=== PATIENT | female | born 1955 | race Caucasian/White ===

== ENCOUNTER → 2017-07-06 | Outpatient (CLI) | payer OTHER ==
[2017-07-06 15:25] LABS: ALT 59 U/L (9-52); AST 70 U/L (14-36); Alkaline Phosphatase 62 U/L (38-126); Anion Gap 13 mmol/L; Blood Urea Nitrogen 19 mg/dL (7-17); Calcium 10.2 mg/dL (8.4-10.2); Carbon Dioxide 26 mmol/L (22-30); Chloride 100 mmol/L (98-107); Glucose 184 mg/dL (74-99); Non-African American GFR(MDRD) >60 (>60 ml/min/1.73 sqM); Potassium 4.9 mmol/L (3.5-5.1); Sodium 139 mmol/L (137-145); Total Bilirubin 0.4 mg/dL (0.2-1.3); Total Protein 7.4 g/dL (6.3-8.2)
== END | disposition home or self-care (01) ==
LOC: LABWHC1 14:31
PROVIDERS: ATTEND Internal Medicine Gastroenterology
DX: K76.0 Fatty (change of) liver, not elsewhere classified (principal)
CPT/HCPCS: 36415; 80053

== ENCOUNTER 2022-02-09 08:00 | Inpatient (IN) | payer MEDICARE, OTHER ==
[2022-02-09] MEDS: fentaNYL (PF) 50 MCG/ML 2 ML AMP IV ONE ×2 (11:56→12:23)
[2022-02-09] MEDS ORDERED: LIDOCAINE 1% INJ 10MG/ML (30 ML VIAL-PF) SQ ONE (11:57)
[2022-02-09] MEDS: HEPARIN SODIUM 1,000 UN/ML (10ML VL) IV ONE ×2 (12:06→13:08)
[2022-02-09] MEDS ORDERED: PRASUGREL 10 MG TAB PO ONE (12:08)
[2022-02-09] MEDS ORDERED: IV FLUID CONTINUATION 300 ML IV ONE (12:14)
[2022-02-09] MEDS ORDERED: IOPAMIDOL-370 125ML BTL INJ ONE (12:23)
[2022-02-09] MEDS ORDERED: NITROGLYCERIN 1000MCG/10ML SYRINGE INTRACORON ONE (12:38)
[2022-02-09] MEDS ORDERED: IOPAMIDOL-370 100ML BTL INJ ONE ×2 (12:50→13:04)
[2022-02-09] MEDS ORDERED: FUROSEMIDE 10 MG/ML 4 ML VIAL IV ONE (12:59)
[2022-02-09] MEDS ORDERED: ATROPINE SULFATE 0.1 MG/ML 10ML SYRINGE IV PRN (13:21)
[2022-02-09] MEDS ORDERED: RX INFO: IV CONTRAST WAS GIVEN 1 EACH MISC MISCELLANE PRN (13:21)
[2022-02-09] MEDS ORDERED: ZOLPIDEM 5 MG TAB PO PRN (13:21)
[2022-02-09] MEDS ORDERED: MAG HYDROX/AL HYDROX/SIMETH 30 ML CUP PO PRN (13:21)
--- NOTE | 2022-02-09 13:29 | P.CRDCN ---
History of Present Illness Consult date: 02/09/22 History of present illness: History of Present Illness: The patient is a 66-year-old female with a known history of chronic tobacco use, hypertension, diabetes and hyperlipidemia who has been complaining of chest discomfort for the last month presented to the emergency room at [facility] with chest discomfort, her EKG showed an IVCD with ST elevation in the anterior leads, recommendations were made regarding transfer for emergent cardiac catheterization. The patient denies any history of obstructive coronary disease but she's been having progressive chest discomfort she had nausea and vomiting and dyspnea. She denies any peripheral edema no dizziness palpitation or syncope. She has not been followed by cardiology in the recent past. She smokes on a regular basis and is very limited in her physical activity. She has no documented PND orthopnea or peripheral edema. Her medication at home include aspirin, Lipitor, Lexapro, Tri-Chlor, Synthroid, lisinopril, metformin Review of Systems: Respiratory: Chronic dyspnea on exertion was cough GI: She had nausea and vomiting today. No history of peptic ulcer disease. No recent GI bleed. : No hematuria or dysuria. Nervous System: No stroke or seizure. Physical Examination: 66-year-old female evaluated in the cardiac catholic priest, short of breath and having severe chest discomfort. Heart rate in the 90s to 100 with a blood pressure of 110/70 Head: Normocephalic. Eyes: Sclerae nonicteric. Neck: Good carotid upstroke, no bruit, no jugular venous distention. Lungs: Decreased breath sounds bilaterally Heart: Regular rate and rhythm, S1-S2, no S3, no rub. Systolic ejection murmur. Abdomen: Soft nontender, positive bowel sounds no organomegaly. Extremities: No edema, intact distal pulses. Labs: EKG shows sinus mechanism with frequent PVCs, IVCD with ST elevation anteriorly Impression: 1. Acute anterior wall myocardial infarction 2. Chronic tobacco use 3. Diabetes 4. History of hypertension 5. Hyperlipidemia Plan: 1. I have recommended to proceed with emergent cardiac catheterization, the procedure as well as the risks and the complication were discussed with her 2. Obtain an echocardiogram with Doppler 3. Smoking cessation 4. Depending on her progress further recommendations will be made 5. Prognosis is guarded, thank you for this consult we will follow with you. Medications and Allergies Allergies Allergy/AdvReac Type Severity Reaction Status Date / Time Penicillins Allergy Rash/Hives Verified 02/09/22 12:13 Physical Exam Vitals: Intake and Output 02/08/22 02/09/22 02/09/22 22:59 06:59 14:59 Intake Total 250 Balance 250 Intake: IV 250 Other: Weight 100 kg Results Intake and Output 02/08/22 02/09/22 02/09/22 22:59 06:59 14:59 Intake Total 250 Balance 250 Intake: IV 250 Other: Weight 100 kg Patient Weight 02/10/22 06:59 Weight 100 kg
[2022-02-09] MEDS ORDERED: SODIUM CHLORIDE 0.9% 1,000 ML in EMPTY BAG 1 BAG IV SCH (13:30)
[2022-02-09 13:38] LABS: Glucose,Whole Blood 239 mg/dL (75-99)
[2022-02-09] MEDS: FUROSEMIDE 20 MG TAB PO SCH (15:36)
[2022-02-09] MEDS: SPIRONOLACTONE 25 MG TAB PO SCH (15:36)
[2022-02-09] MEDS ORDERED: ALBUTEROL NEBULIZED 2.5 MG/3 ML INHALATION PRN (16:58)
[2022-02-09 17:48] LABS: African American GFR (CKD) >90 (>60 ml/min/1.73 sqM); Anion Gap 8 mmol/L; Blood Urea Nitrogen 23 mg/dL (7-17); Calcium 9.9 mg/dL (8.4-10.2); Carbon Dioxide 27 mmol/L (22-30); Chloride 102 mmol/L (98-107); Glucose 209 mg/dL (74-99); Non-African American GFR(CKD) >90 (>60 ml/min/1.73 sqM); Potassium 4.8 mmol/L (3.5-5.1); Sodium 137 mmol/L (137-145)
--- NOTE | 2022-02-09 18:26 | P.CARDCATH ---
Date of Procedure: 02/09/22 Description of Procedure: Cardiac Catheterization: The patient is a 66-year-old female with a known history of hypertension, hyperlipidemia, diabetes mellitus and chronic tobacco use who has been complaining of chest discomfort for the last months. Today her discomfort was worse and she came in to [facility] emergency room and was found to have a new intraventricular conduction delay with ST segment elevation. Recommendations were made regarding cardiac catheterization, the risks and the complications were discussed with the patient who is in full understanding and agreement. Procedure Description: Patient was brought to sugar laboratory assistant in fasting semi-sedated state after receiving Fentanyl and Benadryl achieiving moderate conscious sedated state. Using Xylocaine Anesthesia and Seldinger technique, a 6-Swiss sheath was introduced in the right femoral artery . Subsequently, selective coronary angiography performed using a 6-Swiss 4 bend Elis catheter. After obtaining images of the left system and performing angioplasty images of the RCA were obtained. Multiple views of the coronary artery including hemiaxial views were obtained. The 6-Swiss pigatail catheter was used to cross the aortic valve and LV EDP was calculated. Following that, catheter and sheath were removed. Hemostasis was obtained with deployment of Angio-Seal. There was no immediate complication. Patient was returned to room in stable condition. Of note, the patient received a total of 5 units of intra venous heparin as well as loading dose of Effient. There was no immediate complications. The patient discomfort resolved and then the procedure. Findings: Fluoroscopy: There is severe calcification involving all the coronary arteries Left main: This is a large-size vessel, bifurcating into LAD and left circumflex, left main has no high-grade stenosis LAD: This vessel is totally occluded proximally, heavily calcified, it was no antegrade flow Left circumflex: This is a codominant vessel giving rise to 3 obtuse marginal branch. The second obtuse marginal branch has a 95% stenosis prior to the takeoff of the third obtuse marginal branch that is a 70-80% stenosis RCA: This is a dominant vessel the midsegment is diffusely diseased with an area of stenosis up to 90%. The PDA diffusely diseased with no high-grade stenosis Collaterals there was collateral from the left system toward the right PDA [Left] Ventriculogram: Was not performed Hemodynamics: There was no gradient across the aortic valve, LVEDP 30-35 mmHg Angioplasty: After obtaining images of the LAD a 6-Swiss 3.75 EBU guiding catheter was introduced, after stenting the left main a 0.014 balanced medium J-wire with a straight supra cross catheter were advanced, the total occlusion proximally was crossed and the wire would not cross into the distal vessel. After removing the supra cross 2.0 x 12 mm NC Treck balloon was advanced and inflation at 10 soraida were done after removing that balloon a 2.5 x 12 mm NC Treck balloon was advanced and inflation at 10 soraida were done. Following the removal of the balloon a 2.75 X18 mm Xience chano point stent was advanced and deployed and postdilated at 16 soraida. Following that the balloon was removed and the supra cross was reintroduced and the chronic total occlusion in the mid LAD was crossed after removing the supra cross a mini Treck 1.5 x 8 mm balloon was advanced and multiple inflations were done subsequently a 2.0 x 18 mm resolute [place] was advanced, there was inability to reach the mid vessel at that time a Guidzella catheter was introduced and with the help of the catheter the stent was advanced deployed and postdilated at 16 soraida. After the last inflation and after appropriate wait, the balloon and the guidewire was withdrawn back into the catheter, images were obtained and repeated and revealed successful stenting. The patient discomfort resolved. Conclusion: 1. Heavily calcified coronary arteries 2. Acutely occluded proximal LAD was chronically occluded mid LAD 3. Severe disease in the left circumflex and the RCA with collaterals to the RCA 4. Elevated left ventricle end-diastolic pressure 5. Successful recanalization and stenting of the LAD proximally with reduction of the stenosis from 100% to 0% in the mid LAD from 100% to 0% diffuse distal vessels. Recommendations: I would recommend dual antiplatelets treatment for at least one year with Effient and aspirin with no interruption. It is likely that the patient sustained a myocardial infarction prior to her presentation in view of the prolonged duration of symptoms prior to presentation. Depending on her progress she may require staged revascularization of the RCA and the left circumflex. The prognosis is guarded. Those findings and recommendations were discussed with the patient and her family and they are in full understanding and agreement Duration of sedation is 71 minutes.
[2022-02-09] MEDS: NITROGLYCERIN SL TABS 0.4 MG TAB SUBLINGUAL PRN ×2 (20:01→20:08)
[2022-02-09 20:17] LABS: Glucose,Whole Blood 205 mg/dL (75-99)
[2022-02-09] MEDS: METOPROLOL TARTRATE 25 MG TAB PO SCH (20:23)
[2022-02-09] MEDS: ATORVASTATIN 80 MG TAB PO SCH (20:23)
[2022-02-09] MEDS: MONTELUKAST 10 MG TAB PO SCH (20:23)
[2022-02-09] MEDS: INSULIN ASPART (NovoLOG) 100 UNIT/ML VIAL SQ SCH (20:23)
[2022-02-09] MEDS: NITROGLYCERIN-D5W PMX 50 MG in DEXTROSE/WATER 1 250ML.BAG IV SCH (20:50)
[2022-02-09] MEDS: guaiFENesin-DM 100-10MG/5ML 10 ML CUP PO PRN (22:40)
[2022-02-09] MEDS: HYDROcodone/APAP 5-325MG 1 EACH TAB PO PRN (23:20)
[2022-02-10 00:51] LABS: Chol/HDL Ratio 3.14 Ratio; LDL Cholesterol,Calculated 100.8 mg/dL (0.0-131.0)
[2022-02-10] MEDS: guaiFENesin-DM 100-10MG/5ML 10 ML CUP PO PRN ×3 (02:07→12:53)
[2022-02-10 06:40] LABS: Glucose,Whole Blood 242 mg/dL (75-99)
[2022-02-10] MEDS: LEVOTHYROXINE 137 MCG TAB PO SCH (06:50)
[2022-02-10] MEDS: INSULIN ASPART (NovoLOG) 100 UNIT/ML VIAL SQ SCH ×4 (06:51→20:37)
[2022-02-10] MEDS: HYDROcodone/APAP 5-325MG 1 EACH TAB PO PRN ×2 (06:51→17:47)
[2022-02-10] MEDS ORDERED: FUROSEMIDE 10 MG/ML 2 ML VIAL IV ONE (07:30)
[2022-02-10 07:45] LABS: African American GFR (CKD) >90 (>60 ml/min/1.73 sqM); Anion Gap 6 mmol/L; Blood Urea Nitrogen 27 mg/dL (7-17); Carbon Dioxide 27 mmol/L (22-30); Chloride 103 mmol/L (98-107); Glucose 228 mg/dL (74-99); Non-African American GFR(CKD) >90 (>60 ml/min/1.73 sqM); Sodium 136 mmol/L (137-145)
[2022-02-10 08:03] LABS: Potassium 5.2 mmol/L (3.5-5.1)
[2022-02-10] MEDS: SPIRONOLACTONE 25 MG TAB PO SCH (08:57)
[2022-02-10] MEDS: ASPIRIN 81 MG PO SCH (08:57)
[2022-02-10] MEDS: METOPROLOL TARTRATE 25 MG TAB PO SCH ×2 (08:57→20:38)
[2022-02-10] MEDS: PRASUGREL 10 MG TAB PO SCH (08:57)
[2022-02-10] MEDS: lisinopriL 5 MG TAB PO SCH (08:57)
[2022-02-10] MEDS: FUROSEMIDE 20 MG TAB PO SCH ×2 (08:58→16:05)
[2022-02-10] MEDS: ESCITALOPRAM 20 MG TAB PO SCH (08:58)
--- NOTE | 2022-02-10 09:05 | P.PN ---
Subjective Progress Note Date: 02/10/22 The patient is a 66-year-old male who initially presented to [facility] with an acute anterior wall myocardial infarction. She was subsequently transferred to [facility] for coronary angiogram. Her troponins at the time of transfer were 170 and 282. She was found to have severe triple-vessel disease including totally occluded proximal and mid LAD. She was also noted to have 90% lesion in her mid RCA as well as 95% and her OM 2 and 70-80% in the OM 3. Dr. Quinones performed successful stenting of the proximal and mid LAD. The patient reported chest pain overnight and therefore was started on a nitroglycerin drip, which the patient states has helped her symptoms. She still has some chest discomfort on deep inspiration. No difficulty breathing. No heart racing or fluttering. No diaphoresis. GENERAL: Well-appearing, well-nourished and in no acute distress. NECK: Supple without JVD or thyromegaly. LUNGS: Breath sounds diminished to auscultation bilaterally. Respiration equal and unlabored. No wheezes, rales or rhonchi. HEART: Regular rate and rhythm without murmurs, rubs or gallops. S1 and S2 heard. EXTREMITIES: Normal range of motion, no edema. No clubbing or cyanosis. Peripheral pulses intact and strong. Right radial site is mildly bruised. +2 palpable pulse. No hematoma. VITALS: Blood pressure 124/73, pulse 92, respiratory rate 20, SpO2 98% on room air TELEMETRY: Sinus rhythm LABS: Sodium 136, potassium 5.2, BUN 27, creatinine 0.54, triglycerides 133, LDL 100, HDL 59 IMPRESSION: Acute anterior wall myocardial infarction, status post stenting of the LAD Triple-vessel coronary artery disease Diabetes mellitus Dyslipidemia, LDL 100, home dose of atorvastatin 20 mg Hypertension Current smoker PLAN: Continue current medication regimen including nitroglycerin drip Check hemoglobin A1c Echocardiogram pending Further recommendations will be based upon clinical course Prognosis is guarded I am dictating on behalf of Dr Lawson Lebron's history/physical and assessment/plan. Objective - Vital Signs Vital signs: Vital Signs Temp 98.1 F 02/10/22 04:00 Pulse 92 02/10/22 07:00 Resp 20 02/10/22 07:00 BP 124/73 02/10/22 07:00 Pulse Ox 98 02/10/22 07:00 Intake & Output 02/09/22 02/10/22 02/10/22 18:59 06:59 18:59 Intake Total 500 659.251 49.6 Output Total 400 0 0 Balance 100 659.251 49.6 Weight 100 kg 105.8 kg Intake: IV 500 624.5 10 Nitroglycerin-D5w Pmx 50 4.5 mg In Dextrose/Water 1 250ml.bag @ 5 MCG/MIN 1.5 mls/hr IV .Q24H JOSÉ ANTONIO Rx#: [id number] Sodium Chloride 0.9% 1, 250 620 10 000 ml In Empty Bag 1 bag @ 1 ML/KG/HR 100 mls/hr IV .Q10H JOSÉ ANTONIO Rx#: [id number] Intake, IV Titration 34.751 39.6 Amount Nitroglycerin-D5w Pmx 50 34.751 39.6 mg In Dextrose/Water 1 250ml.bag @ 5 MCG/MIN 1.5 mls/hr IV .Q24H JOSÉ ANTONIO Rx#: [id number] Output: Urine 400 0 0 Other: # Voids 0 0 - Labs CBC & Chem 7: 02/10/22 06:51 Labs: Abnormal Lab Results - Last 24 Hours (Table) 02/09/22 02/09/22 02/09/22 Range/Units 13:36 14:45 17:20 Sodium (137-145) mmol/L Potassium (3.5-5.1) mmol/L BUN (7-17) mg/dL Glucose (74-99) mg/dL POC Glucose (mg/dL) 239 H (75-99) mg/dL Troponin I 170.000 H* 282.000 H* (0.000-0.034) ng/mL 02/09/22 02/09/22 02/10/22 Range/Units 17:20 20:15 06:37 Sodium (137-145) mmol/L Potassium (3.5-5.1) mmol/L BUN 23 H (7-17) mg/dL Glucose 209 H (74-99) mg/dL POC Glucose (mg/dL) 205 H 242 H (75-99) mg/dL Troponin I (0.000-0.034) ng/mL 02/10/22 Range/Units 06:51 Sodium 136 L (137-145) mmol/L Potassium 5.2 H (3.5-5.1) mmol/L BUN 27 H (7-17) mg/dL Glucose 228 H (74-99) mg/dL POC Glucose (mg/dL) (75-99) mg/dL Troponin I (0.000-0.034) ng/mL
[2022-02-10 10:43] VITALS: BMI 42.6
--- NOTE | 2022-02-10 11:04 | P.HPIM ---
History of Present Illness H&P Date: 02/10/22 Chief Complaint: Chest pain Patient is a 66-year-old female with a known history of hypertension, diabetes type 2 [id number], hyperlipidemia and hypothyroidism and currently everyday smoker presents to ER initially to [facility] with complaints of chest discomfort associate with nausea vomiting and shortness of breath/dyspnea. Patient was found to have ST elevation in the anterior leads. Patient was seen by cardiology and requested transfer to [facility] for cardiac catheterization and PCI. No prior history of cardiac disease. No fever no chills. No recent illnesses. Patient is status post cardiac catheterization showed a acutely occluded proximal LAD and chronically occluded mid LAD. Severe disease in the left circumflex and RCA with collaterals to the RCA. Elevated left ventricular end- diastolic pressures. Successful recanalization and stenting of the LAD proximally with reduction of the stenosis from 90% to 0% in the mid LAD from 100% to 0% diffuse distal vessels. Patient was started Effient and aspirin. Cardiology recommends that patient may need staged revascularization of the RCA and left circumflex. Laboratory pressure sodium 137 potassium 4.8 chloride 102 BUN 23 and creatinine 0.54 and blood sugar is 203 and troponin level was 282 LDL 100.8 Review of Systems Constitutional: Patient denies any fever or chills . No generalized weakness or weight loss. Abdomen: Patient denied nausea vomiting and diarrhea and abdominal pain. Cardiovascular: Patient denies any chest pain or short of breath no palpitations. Respiratory: patient denied any cough is from production. No shortness of breath Neurologic: Patient denied any numbness or tingling headache. Musculoskeletal: Patient denies any complaints of joint swelling or deformity. Skin: Negative Psychiatric: Negative Endocrine: No heat or cold intolerance. No recent weight gain. Genitourinary: No dysuria or hematuria. All other 14 point ROS negative except the above Past Medical History Past Medical History: Asthma, Diabetes Mellitus, Hypertension, Thyroid Disorder History of Any Multi-Drug Resistant Organisms: None Reported Past Surgical History: Cholecystectomy Past Anesthesia/Blood Transfusion Reactions: No Reported Reaction Past Psychological History: No Psychological Hx Reported Smoking Status: Current every day smoker - Past Family History Father History Unknown: Yes Mother Family Medical History: Diabetes Mellitus Brother(s) History Unknown: Yes Sister(s) History Unknown: Yes Medications and Allergies Home Medications Medication Instructions Recorded Confirmed Type Albuterol Nebulized [Ventolin 2.5 mg INHALATION RT-Q6H PRN 02/09/22 02/09/22 History Nebulized] Aspirin EC [Ecotrin Low Dose] 81 mg PO DAILY 02/09/22 02/09/22 History Atorvastatin [Lipitor] 20 mg PO HS 02/09/22 02/09/22 History Clobetasol Propionate [Temovate 1 applic TOPICAL BID 02/09/22 02/09/22 History 0.05% Oint] Escitalopram [Lexapro] 20 mg PO DAILY 02/09/22 02/09/22 History Fenofibrate 54 mg PO DAILY 02/09/22 02/09/22 History Levothyroxine Sodium [Synthroid] 137 mcg PO DAILY 02/09/22 02/09/22 History Magnesium Oxide [Mag-Ox] 400 mg PO DAILY 02/09/22 02/09/22 History Montelukast [Singulair] 10 mg PO HS 02/09/22 02/09/22 History Multivitamins, Thera [Multivitamin 1 tab PO DAILY 02/09/22 02/09/22 History (formulary)] [place]-3 Fatty Acids/Fish Oil [Fish 1 cap PO DAILY 02/09/22 02/09/22 History Oil 1,000 mg Softgel] Pioglitazone [Actos] 15 mg PO DAILY 02/09/22 02/09/22 History lisinopriL [Zestril] 5 mg PO DAILY 02/09/22 02/09/22 History metFORMIN HCL [Glucophage] 1,000 mg PO BID 02/09/22 02/09/22 History Allergies Allergy/AdvReac Type Severity Reaction Status Date / Time Penicillins AdvReac Rash/Hives Verified 02/09/22 15:25 Physical Exam Vitals: Vital Signs Temp Pulse Resp BP Pulse Ox 02/10/22 10:30 83 22 99/47 96 02/10/22 10:00 90 24 111/75 96 02/10/22 09:30 98 22 91/62 96 02/10/22 09:00 92 12 113/71 97 02/10/22 08:30 98.1 F 98 17 104/69 96 02/10/22 08:00 91 22 101/66 97 02/10/22 07:30 92 22 106/68 97 02/10/22 07:00 92 20 124/73 98 04/21/22 06:30 92 18 110/67 98 02/10/22 06:00 92 22 112/63 98 02/10/22 05:30 91 21 118/73 02/10/22 05:00 93 14 106/54 97 02/10/22 04:30 92 16 105/68 97 02/10/22 04:00 98.1 F 93 18 100/66 97 02/10/22 03:30 90 18 106/71 97 02/10/22 03:00 89 22 103/64 98 02/10/22 02:30 96 23 102/69 94 L 02/10/22 02:00 92 20 110/73 97 02/10/22 01:30 101 H 18 107/69 96 02/10/22 01:00 93 21 112/69 97 02/10/22 00:30 96 15 112/70 97 02/10/22 00:00 98.4 F 98 21 111/70 97 02/09/22 23:30 97 19 112/76 96 02/09/22 23:00 101 H 20 97/65 93 L 02/09/22 22:30 112 H 20 111/75 93 L 02/09/22 22:00 101 H 19 110/77 94 L 02/09/22 21:30 101 H 18 114/75 93 L 02/09/22 21:00 105 H 16 119/78 94 L 02/09/22 20:30 105 H 13 120/87 91 L 02/09/22 20:00 98.6 F 110 H 20 118/78 90 L 02/09/22 19:30 104 H 18 114/78 91 L 02/09/22 19:00 105 H 19 118/78 89 L 02/09/22 18:00 105 H 15 123/81 96 02/09/22 17:45 104 H 02/09/22 17:33 106 H 02/09/22 17:00 102 H 19 120/76 92 L 02/09/22 16:00 98.2 F 101 H 25 H 139/86 94 L 02/09/22 15:00 107 H 18 139/86 88 L 02/09/22 14:20 110 H 15 139/86 77 L 02/09/22 14:10 107 H 8 L 139/86 86 L 02/09/22 14:00 113 H 20 139/86 85 L 02/09/22 13:50 133 H 27 H 139/86 72 L 02/09/22 13:40 98.2 F 128 H 32 H 81 L 02/09/22 13:38 117 H 18 82 L Intake and Output 02/09/22 02/10/22 02/10/22 22:59 06:59 14:59 Intake Total 404.0 455.251 107.225 Output Total 400 0 300 Balance 4.0 455.251 -192.775 Intake: IV 403.0 421.5 40 Nitroglycerin-D5w Pmx 50 3.0 1.5 mg In Dextrose/Water 1 250ml.bag @ 5 MCG/MIN 1.5 mls/hr IV .Q24H JOSÉ ANTONIO Rx#: [id number] Sodium Chloride 0.9% 1, 400 420 40 000 ml In Empty Bag 1 bag @ 1 ML/KG/HR 100 mls/hr IV .Q10H JOSÉ ANTONIO Rx#: [id number] Intake, IV Titration 1 33.751 67.225 Amount Nitroglycerin-D5w Pmx 50 1 33.751 67.225 mg In Dextrose/Water 1 250ml.bag @ 5 MCG/MIN 1.5 mls/hr IV .Q24H JOSÉ ANTONIO Rx#: [id number] Output: Urine 400 0 300 Other: # Voids 0 0 0 Weight 105.8 kg 105.8 kg PHYSICAL EXAMINATION: Patient is lying in the bed comfortably, no acute distress, awake alert and oriented.. HEENT: Normocephalic. Neck is supple. Pupils reactive. Nostrils clear. Oral cavity is moist. Neck reveals no JVD, carotid bruits, or thyromegaly. CHEST EXAMINATION: Trachea is central. Symmetrical expansion. Lung wallace clear to auscultation and percussion. CARDIAC: Normal S1, S2 with no gallops. No murmurs ABDOMEN: Soft. Bowel sounds normal. No organomegaly. No abdominal bruits. Extremities: reveal no edema. No clubbing or cyanosis Neurologically awake, alert, oriented x3 with well-coordinated movements. No fo maría deficits noted Skin: No rash or skin lesions. Psychiatric: Coperative. Nonsuicidal Musculoskeletal: No joint swelling or deformity. Normal range of motion. Results CBC & Chem 7: 02/11/22 18:01 02/11/22 07:34 Labs: Abnormal Lab Results - Last 24 Hours (Table) 02/09/22 02/09/22 02/09/22 Range/Units 13:36 14:45 17:20 Sodium (137-145) mmol/L Potassium (3.5-5.1) mmol/L BUN (7-17) mg/dL Glucose (74-99) mg/dL POC Glucose (mg/dL) 239 H (75-99) mg/dL Troponin I 170.000 H* 282.000 H* (0.000-0.034) ng/mL 02/09/22 02/09/22 02/10/22 Range/Units 17:20 20:15 06:37 Sodium (137-145) mmol/L Potassium (3.5-5.1) mmol/L BUN 23 H (7-17) mg/dL Glucose 209 H (74-99) mg/dL POC Glucose (mg/dL) 205 H 242 H (75-99) mg/dL Troponin I (0.000-0.034) ng/mL 02/10/22 Range/Units 06:51 Sodium 136 L (137-145) mmol/L Potassium 5.2 H (3.5-5.1) mmol/L BUN 27 H (7-17) mg/dL Glucose 228 H (74-99) mg/dL POC Glucose (mg/dL) (75-99) mg/dL Troponin I (0.000-0.034) ng/mL Thrombosis Risk Factor Assmnt - DVT/VTE Prophylaxis DVT/VTE Prophylaxis: Pharmacologic Prophylaxis ordered - Choose All That Apply Any of the Below Risk Factors Present?: Yes Each Factor Represents 1 point: Acute PA, Medical pt on bed rest, Obesity (BMI >25) Other Risk Factors: No Other congenital or acquired thrombophilia - If yes, enter type in comment: No Thrombosis Risk Factor Assessment Total Risk Factor Score: 3 Thrombosis Risk Factor Assessment Level: Moderate Risk Assessment and Plan Assessment: Acute anterior wall PA. Status post cardiac cath placed and stent placement to LAD. triple-vessel coronary artery disease Diabetes type 2 [id number] Hyperlipidemia. LDL 100.8. Hypertension Currently every day smoker possible COPD DVT prophylaxis with heparin subcu Plan: Patientis status post cardiac catheterization and stent placement LAD. Patient is also found to have triple-vesseldisease and may need staged cardiac catheterization. will be continued onaspirin, statin and afebrile. Continue with metoprolol and lisinopril. A1c level was ordered.patient will be consulted on insulin sliding scale. Continue with telemetry monitoring and cardiology is on board.2-D echocardiogram is pending. Time with Patient: Greater than 30
--- NOTE | 2022-02-10 11:08 | CA ---
Transthoracic Echo Report Name: Lary Viramontes Age: 66 Gender: F : 1955 Exam Date: 02/10/2022 07:43 Exam Location: [facility] Ht (in): 62 Wt (lb): 233 Ordering Physician: Guanaco Quinones MD ([id number]) Attending/Referring Phys: Maintenance Service Dispatcher Lizett Mata RDCS Procedure CPT: Indications: WI Cardiac Hx: Technical Quality: Fair Contrast 1: Total Dose (mL): Contrast 2: Total Dose (mL): MEASUREMENTS (Male / Female) Normal Values 2D ECHO LV Diastolic Diameter PLAX 5.1 cm 4.2 - 5.9 / 3.9 - 5.3 cm LV Systolic Diameter PLAX 4.1 cm IVS Diastolic Thickness 1.4 cm 0.6 - 1.0 / 0.6 - 0.9 cm LVPW Diastolic Thickness 1.2 cm 0.6 - 1.0 / 0.6 - 0.9 cm LV Relative Wall Thickness 0.5 RV Internal Dim ED PLAX 2.6 cm LVOT Diameter 1.8 cm LA Systolic Diameter LX 3.5 cm 3.0 - 4.0 / 2.7 - 3.8 cm LA Volume 46.5 cm 18 - 58 / 22 - 52 cm M-MODE Aortic Root Diameter MM 3.5 cm MV E Point Septal Separation 1.2 cm AV Cusp Separation MM 1.0 cm DOPPLER AV Peak Velocity 217.3 cm/s AV Peak Gradient 18.9 mmHg AV Mean Velocity 151.6 cm/s AV Mean Gradient 11.0 mmHg AV Velocity Time Integral 37.1 cm LVOT Peak Velocity 104.0 cm/s LVOT Peak Gradient 4.3 mmHg AV Area Cont Eq pk 1.2 cm MV Area PHT 6.5 cm Mitral E Point Velocity 82.2 cm/s Mitral A Point Velocity 113.7 cm/s Mitral E to A Ratio 0.7 MV Deceleration Time 116.2 ms MV E' Velocity 4.1 cm/s Mitral E to MV E' Ratio 20.1 FINDINGS Left Ventricle Moderately increased septal wall thickness. Mildly increased posterior wall thickness. Left ventricular ejection fraction is estimated at 20-25 %. Hypokinetic apical and mid anterior wall. Hypokinetic apical andmid lateral wall. Hypokinetic apical and mid posterior wall. Hypokinetic apical and mid inferior wall. Hypokinetic mid septum. [place] hypokinetic. Right Ventricle The right ventricle is normal in size and function. Right Atrium The right atrium is normal in size. Left Atrium The left atrium is normal in size. Mitral Valve Structurally normal mitral valve without significant stenosis or prolapse. There is no mitral regurgitation. Mitral annular calcification. Aortic Valve Trileaflet aortic valve. Diffuse thickening of the aortic valve cusps with reduced excursion. [id number] aortic stenosis with a peak gradient of 19 mmHg and a mean gradient of 11 mmHg. Tricuspid Valve Structurally normal tricuspid valve without significant stenosis. Pulmonic Valve Structurally normal pulmonic valve without significant stenosis. Trace pulmonic regurgitation. Pericardium Normal pericardium without effusion. Aorta Normal aortic root dimension. CONCLUSIONS #1. Mild to moderately dilated left ventricle with mild to moderate concentric hypertrophy. Severe hypokinesia of the apical regions with only basal segments showing good contraction. 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 #2. Normal atrial size. #3. Mild mitral regurgitation with evidence of annular calcification. #4. Thickened aortic valve leaflets with [id number] stenosis. #5. There is no pericardial effusion Previewed by: Dr. Oumar Burrell MD (Electronically Signed) Final Date: 10 February 2022 11:08
[2022-02-10 11:55] LABS: Glucose,Whole Blood 189 mg/dL (75-99)
[2022-02-10 17:41] LABS: Glucose,Whole Blood 190 mg/dL (75-99)
[2022-02-10] MEDS: NITROGLYCERIN-D5W PMX 50 MG in DEXTROSE/WATER 1 250ML.BAG IV SCH (19:35)
[2022-02-10 20:32] LABS: Glucose,Whole Blood 200 mg/dL (75-99)
[2022-02-10] MEDS: ATORVASTATIN 80 MG TAB PO SCH (20:38)
[2022-02-10] MEDS: MONTELUKAST 10 MG TAB PO SCH (20:38)
[2022-02-11] MEDS: guaiFENesin-DM 100-10MG/5ML 10 ML CUP PO PRN (01:04)
--- NOTE | 2022-02-11 05:06 | XR ---
EXAMINATION TYPE: XR chest 1V portable DATE OF EXAM: 02/11/2022 COMPARISON: NONE HISTORY: Hypoxemia TECHNIQUE: Single view FINDINGS: There is pulmonary interstitial and airspace edema. There is blunting of the costophrenic a ngles. Heart is enlarged. IMPRESSION: Pulmonary edema that could be congestive heart failure. Bilateral mild pleural effusions.
[2022-02-11] MEDS ORDERED: FUROSEMIDE 10 MG/ML 4 ML VIAL IV STA (05:13)
[2022-02-11 06:16] LABS: Glucose,Whole Blood 232 mg/dL (75-99)
[2022-02-11] MEDS: LEVOTHYROXINE 137 MCG TAB PO SCH (06:42)
[2022-02-11] MEDS: INSULIN ASPART (NovoLOG) 100 UNIT/ML VIAL SQ SCH ×4 (06:42→19:38)
[2022-02-11 08:00] LABS: Basophils % (A) 0 %; Eosinophils % (A) 0 %; HCT 38.4 % (34.0-46.0); HGB 12.9 gm/dL (11.4-16.0); Lymphocytes # (A) 1.2 k/uL (1.0-4.8); Lymphocytes % (A) 11 %; MCH 30.8 pg (25.0-35.0); MCHC 33.7 g/dL (31.0-37.0); MCV 91.5 fL (80.0-100.0); Mean Platelet Volume 6.9; Monocytes # (A) 0.5 k/uL (0-1.0); Monocytes % (A) 4 %; Neutrophils # (A) 9.6 k/uL (1.3-7.7); Neutrophils % (A) 84 %; Platelet Count 205 k/uL (150-450); RDW 14.7 % (11.5-15.5); WBC 11.4 k/uL (3.8-10.6)
[2022-02-11 08:20] LABS: Anion Gap 8 mmol/L; Blood Urea Nitrogen 19 mg/dL (7-17); Calcium 9.6 mg/dL (8.4-10.2); Carbon Dioxide 30 mmol/L (22-30); Chloride 96 mmol/L (98-107); Glucose 216 mg/dL (74-99); Sodium 134 mmol/L (137-145)
[2022-02-11] MEDS: METOPROLOL TARTRATE 25 MG TAB PO SCH ×2 (08:34→19:37)
[2022-02-11] MEDS: SPIRONOLACTONE 25 MG TAB PO SCH (08:34)
[2022-02-11] MEDS: PRASUGREL 10 MG TAB PO SCH (08:34)
[2022-02-11] MEDS: lisinopriL 5 MG TAB PO SCH (08:35)
[2022-02-11] MEDS: ESCITALOPRAM 20 MG TAB PO SCH (08:35)
[2022-02-11] MEDS: ASPIRIN 81 MG PO SCH (08:35)
[2022-02-11 08:48] LABS: African American GFR (CKD) >90 (>60 ml/min/1.73 sqM); Non-African American GFR(CKD) >90 (>60 ml/min/1.73 sqM)
[2022-02-11] MEDS: FUROSEMIDE 10 MG/ML 4 ML VIAL IV SCH ×2 (09:26→19:37)
[2022-02-11] MEDS ORDERED: IPRATROPIUM-ALBUTEROL 3 ML NEB INHALATION PRN (10:04)
--- NOTE | 2022-02-11 11:30 | P.CNPUL ---
History of Present Illness Consult date: 02/11/22 Requesting physician: Guanaco Quinones Reason for consult: dyspnea, asthma, COPD Chief complaint: ST segment elevation myocardial infarction/COPD History of present illness: Pulmonary consult dated 02/11/2022. 66-year-old female who was admitted with a diagnosis of ST segment elevation myocardial infarction. She was admitted back on February 09. The patient had 2 stents placed in her LAD, on February 09. She is typically sees Dr. Waggoner as her steward racetrack. She tells me that she was diagnosed as having asthma. Currently, she is on 2 L nasal cannula. She's not receiving any IV fluids. Earlier, she developed flash pulmonary edema. Her ejection fraction is 20-25%. She was treated with Lasix. She's feeling much better. She has a history of hypertension, diabetes, hyperlipidemia, hypothyroidism, and COPD/asthma. At home, she is on nebulizer treatments with albuterol, and she has a Flovent MDI. She has a 50 year history of tobacco use. She is still smoking when she was admitted to the hospital. Laboratory data includes a white count of 11.4, hemoglobin 12.9, hematocrit 38.4, and a platelet count of 205,000. Sodium 134, potassium 4 chlorides 96, CO2 30, BUN 19, creatinine 0.59. Her initial troponins were 170, and 282. Her chest x-ray does show some interstitial changes, consistent with interstitial edema. Review of Systems REVIEW OF SYSTEMS: CONSTITUTIONAL: [Negative.] NEUROLOGIC: [ Negative.] HEENT: [ Negative.] CARDIAC: [Negative.] PULMONARY: Chronic shortness of breath, worse recently, but now improved. GI: [Negative.] : [Negative.] RHEUMATOLOGIC: [ Negative.] IMMUNOLOGIC: [ Negative.] ENDOCRINE: [Negative. ] DERMATOLOGIC: [Negative.] Past Medical History Past Medical History: Asthma, Diabetes Mellitus, Hypertension, Thyroid Disorder History of Any Multi-Drug Resistant Organisms: None Reported Past Surgical History: Cholecystectomy Past Anesthesia/Blood Transfusion Reactions: No Reported Reaction Past Psychological History: No Psychological Hx Reported Smoking Status: Current every day smoker - Past Family History Father History Unknown: Yes Mother Family Medical History: Diabetes Mellitus Brother(s) History Unknown: Yes Sister(s) History Unknown: Yes Medications and Allergies Home Medications Medication Instructions Recorded Confirmed Type Albuterol Nebulized [Ventolin 2.5 mg INHALATION RT-Q6H PRN 02/09/22 02/09/22 History Nebulized] Aspirin EC [Ecotrin Low Dose] 81 mg PO DAILY 02/09/22 02/09/22 History Atorvastatin [Lipitor] 20 mg PO HS 02/09/22 02/09/22 History Clobetasol Propionate [Temovate 1 applic TOPICAL BID 02/09/22 02/09/22 History 0.05% Oint] Escitalopram [Lexapro] 20 mg PO DAILY 02/09/22 02/09/22 History Fenofibrate 54 mg PO DAILY 02/09/22 02/09/22 History Levothyroxine Sodium [Synthroid] 137 mcg PO DAILY 02/09/22 02/09/22 History Magnesium Oxide [Mag-Ox] 400 mg PO DAILY 02/09/22 02/09/22 History Montelukast [Singulair] 10 mg PO HS 02/09/22 02/09/22 History Multivitamins, Thera [Multivitamin 1 tab PO DAILY 02/09/22 02/09/22 History (formulary)] [place]-3 Fatty Acids/Fish Oil [Fish 1 cap PO DAILY 02/09/22 02/09/22 History Oil 1,000 mg Softgel] Pioglitazone [Actos] 15 mg PO DAILY 02/09/22 02/09/22 History lisinopriL [Zestril] 5 mg PO DAILY 02/09/22 02/09/22 History metFORMIN HCL [Glucophage] 1,000 mg PO BID 02/09/22 02/09/22 History Allergies Allergy/AdvReac Type Severity Reaction Status Date / Time Penicillins AdvReac Rash/Hives Verified 02/09/22 15:25 Physical Exam Osteopathic Statement: *. No significant issues noted on an osteopathic structural exam other than those noted in the History and Physical/Consult. Vitals: Vital Signs Temp Pulse Resp BP Pulse Ox 02/11/22 10:00 85 23 107/72 95 02/11/22 09:30 91 24 95 02/11/22 09:00 100 16 111/67 95 02/11/22 08:30 100 24 111/67 100 02/11/22 08:00 98.3 F 105 H 23 115/73 100 02/11/22 07:30 108 H 26 H 115/73 100 02/11/22 07:00 108 H 22 110/65 95 02/11/22 06:30 109 H 24 93 L 02/11/22 06:00 96 21 110/65 96 02/11/22 05:30 101 H 24 94 L 02/11/22 05:00 103 H 23 131/90 92 L 02/11/22 04:30 104 H 22 93 L 02/11/22 04:00 98.6 F 107 H 21 122/98 94 L 02/11/22 03:00 104 H 19 124/77 93 L 02/11/22 02:30 101 H 23 92 L 02/11/22 02:00 100 18 105/64 93 L 02/11/22 01:00 99 23 98/70 93 L 02/11/22 00:00 99.2 F 105 H 18 98/78 92 L 02/10/22 23:30 92 22 95 02/10/22 23:00 96 20 89/59 95 02/10/22 22:00 92 38 H 107/96 91 L 02/10/22 21:30 100 25 H 118/77 91 L 02/10/22 21:00 104 H 22 108/53 91 L 02/10/22 20:30 105 H 21 90 L 02/10/22 20:00 98.7 F 96 23 103/51 94 L 02/10/22 19:00 92 92 L 02/10/22 18:30 101 H 16 107/73 100 02/10/22 18:00 107 H 23 114/66 94 L 02/10/22 17:30 106 H 22 114/66 96 02/10/22 17:00 106 H 20 94 L 02/10/22 16:30 98 18 104/68 94 L 02/10/22 16:00 99.6 F 96 25 H 108/62 97 02/10/22 15:30 96 24 95 02/10/22 15:00 98/55 02/10/22 14:30 93 22 98/55 95 02/10/22 14:00 95 28 H 92/54 96 02/10/22 13:30 92 24 92/54 96 02/10/22 13:00 89 19 90/64 95 02/10/22 12:30 90 22 94 L 02/10/22 12:00 98.8 F 88 16 90/64 94 L 02/10/22 11:30 92 25 H 73/51 96 Intake and Output 02/10/22 02/11/22 02/11/22 22:59 06:59 14:59 Intake Total 440 220 Output Total 500 400 900 Balance -60 -400 -872 Intake: Oral 440 220 Output: Urine 500 400 900 Other: Voiding Method Bedside Commode Bedside Commode Bedside Commode # Voids 1 0 1 Weight 101 kg No acute distress, oriented 3. Currently on 2 L nasal cannula. HEENT examination is grossly unremarkable. Neck supple. Full range of motion. No adenopathy thyromegaly or neck vein distention. Cardiovascular examination reveals regular rhythm rate. S1-S2 normal. No S3 or S4. No discernible murmur noted. Heart rate 85 bpm. Lungs reveal mild bibasilar crackles. Breath sounds equal bilaterally. No wheezes. No rhonchi. Saturations are 95% on 2 L. Abdomen soft bowel sounds are heard. No masses or tenderness. Extremities are intact. No cyanosis clubbing or edema. Skin is without rash or lesion. Neurologic examination is brief but nonfocal. Results - Laboratory Findings CBC and BMP: 02/11/22 07:34 02/11/22 07:34 Abnormal lab findings: Abnormal Labs 02/09/22 02/09/22 02/09/22 13:36 14:45 17:20 WBC Neutrophils # Sodium Potassium Chloride BUN Glucose POC Glucose (mg/dL) 239 H Troponin I 170.000 H* 282.000 H* 02/09/22 02/09/22 02/10/22 17:20 20:15 06:37 WBC Neutrophils # Sodium Potassium Chloride BUN 23 H Glucose 209 H POC Glucose (mg/dL) 205 H 242 H Troponin I 02/10/22 02/10/22 02/10/22 06:51 11:54 17:39 WBC Neutrophils # Sodium 136 L Potassium 5.2 H Chloride BUN 27 H Glucose 228 H POC Glucose (mg/dL) 189 H 190 H Troponin I 02/10/22 02/11/22 02/11/22 20:30 06:15 07:34 WBC 11.4 H Neutrophils # 9.6 H Sodium Potassium Chloride BUN Glucose POC Glucose (mg/dL) 200 H 232 H Troponin I 02/11/22 07:34 WBC Neutrophils # Sodium 134 L Potassium Chloride 96 L BUN 19 H Glucose 216 H POC Glucose (mg/dL) Troponin I - Diagnostic Findings Chest x-ray: image reviewed Assessment and Plan Assessment: Chronic obstructive pulmonary disease/asthma, with a 50 year history of tobacco use. ST segment elevation myocardial infarction, S/P 2 stents to the LAD, February 09. History of hypothyroidism. History of hypertension. History of diabetes. History of hyperlipidemia. Ischemic cardiomyopathy. Plan: Plan dated 02/11/2022. The patient typically sees Dr. Waggoner, her own steward racetrack. She apparently was diagnosed as having asthma. She has a 50 year history of tobacco use. More likely, she has chronic obstructive pulmonary disease. She was smoking up until the time she came into the hospital. The patient apparently uses a nebulizer machine at home, and a Flovent inhaler. She's counseled about the importance of smoking cessation. The patient should follow-up with her steward racetrack when she is discharged from the hospital. Prognosis is guarded. We will continue to see her while she is in the hospital. Time with Patient: Greater than 30
[2022-02-11 11:55] LABS: Glucose,Whole Blood 192 mg/dL (75-99)
--- NOTE | 2022-02-11 12:47 | P.PN ---
Subjective Patient is resting comfortably in bed. She is not comfortable down However later she developed flash pulmonary edema. She has reduced LV systolic function and was admitted with ST elevation PR She underwent successful stenting to the proximal LAD in the mid LAD LVEDP was elevated greater than 30 mmHg line she is heavily calcified vessels She also has a severely diseased mid left circumflex and RCA with collaterals to the RCA She denies any chest discomfort at this time she looks comfortable Pulse rate in the 90s afebrile 98F Respirations 14 Earlier it is in the mid 20s Her blood pressure is low normal 100/70 mmHg White count 11.4, hemoglobin 12.9 Sodium 134 potassium 4.0 BUN 19 and creatinine 0.59 Impression Acute anterior wall PR status post stenting to the LAD Severe LV dysfunction Congestive heart failure with an episode of flash pulmonary edema responded to IV Lasix Plan Continue dual antiplatelet therapy and statins Continue IV Lasix Continue spironolactone and low dose lisinopril She is on metoprolol 25 mg twice daily at this time If her blood pressure is improved I would switch to carvedilol instead, tomorrow Her blood pressure is low normal Objective - Vital Signs Vital signs: Vital Signs Temp 98.2 F 02/11/22 12:00 Pulse 92 02/11/22 12:00 Resp 14 02/11/22 12:00 BP 99/53 02/11/22 12:00 Pulse Ox 95 02/11/22 12:00 Intake & Output 02/10/22 02/11/22 02/11/22 18:59 06:59 18:59 Intake Total 118.225 440 220 Output Total 500 900 900 Balance -381.775 -460 -680 Weight 105.8 kg 101 kg Intake: IV 50 Sodium Chloride 0.9% 1, 50 000 ml In Empty Bag 1 bag @ 1 ML/KG/HR 100 mls/hr IV .Q10H JOSÉ ANTONIO Rx#: [id number] Intake, IV Titration 68.225 Amount Nitroglycerin-D5w Pmx 50 68.225 mg In Dextrose/Water 1 250ml.bag @ 5 MCG/MIN 1.5 mls/hr IV .Q24H JOSÉ ANTONIO Rx#: [id number] Oral 440 220 Output: Urine 500 900 900 Other: Voiding Method Bedside Commode Bedside Commode Bedside Commode # Voids 2 0 1 - Labs CBC & Chem 7: 02/11/22 07:34 02/11/22 07:34 Labs: Abnormal Lab Results - Last 24 Hours (Table) 02/10/22 02/10/22 02/11/22 Range/Units 17:39 20:30 06:15 WBC (3.8-10.6) k/uL Neutrophils # (1.3-7.7) k/uL Sodium (137-145) mmol/L Chloride (98-107) mmol/L BUN (7-17) mg/dL Glucose (74-99) mg/dL POC Glucose (mg/dL) 190 H 200 H 232 H (75-99) mg/dL 02/11/22 02/11/22 02/11/22 Range/Units 07:34 07:34 11:52 WBC 11.4 H (3.8-10.6) k/uL Neutrophils # 9.6 H (1.3-7.7) k/uL Sodium 134 L (137-145) mmol/L Chloride 96 L (98-107) mmol/L BUN 19 H (7-17) mg/dL Glucose 216 H (74-99) mg/dL POC Glucose (mg/dL) 192 H (75-99) mg/dL
[2022-02-11 16:46] LABS: Glucose,Whole Blood 191 mg/dL (75-99)
[2022-02-11] MEDS ORDERED: SODIUM CHLORIDE 0.65% NASAL SPRAY 44 ML BTL NASAL PRN (17:28)
[2022-02-11] MEDS ORDERED: OXYMETAZOLINE 0.05% NASL SPRAY 1 SPRAY BOTTLE NASAL SCH (17:29)
[2022-02-11] MEDS ORDERED: OXYMETAZOLINE 0.05% NASL SPRAY 1 SPRAY BOTTLE NASAL STA (17:34)
[2022-02-11 18:21] LABS: Basophils # (A) 0.1 k/uL (0-0.2); Basophils % (A) 0 %; Eosinophils # (A) 0.1 k/uL (0-0.7); Eosinophils % (A) 1 %; HCT 38.3 % (34.0-46.0); HGB 12.5 gm/dL (11.4-16.0); Lymphocytes # (A) 1.7 k/uL (1.0-4.8); Lymphocytes % (A) 12 %; MCH 30.4 pg (25.0-35.0); MCHC 32.7 g/dL (31.0-37.0); MCV 92.8 fL (80.0-100.0); Mean Platelet Volume 6.7; Monocytes # (A) 0.5 k/uL (0-1.0); Monocytes % (A) 4 %; Neutrophils # (A) 11.1 k/uL (1.3-7.7); Neutrophils % (A) 82 %; Platelet Count 228 k/uL (150-450); RBC 4.13 m/uL (3.80-5.40); WBC 13.6 k/uL (3.8-10.6)
[2022-02-11 18:31] LABS: Partial Thromboplastin Time 23.4 sec (22.0-30.0)
[2022-02-11 19:34] LABS: Glucose,Whole Blood 246 mg/dL (75-99)
[2022-02-11] MEDS: ATORVASTATIN 80 MG TAB PO SCH (19:37)
[2022-02-11] MEDS: MONTELUKAST 10 MG TAB PO SCH (19:37)
[2022-02-11] MEDS: DOXYCYCLINE 100 MG CAP PO SCH (19:37)
[2022-02-11] MEDS: metroNIDAZOLE 500 MG TAB PO SCH (19:37)
[2022-02-11] MEDS: SYMBICORT 160-4.5 MCG INHALER INHALATION SCH (20:01)
[2022-02-12 06:12] LABS: Glucose,Whole Blood 197 mg/dL (75-99)
[2022-02-12] MEDS: LEVOTHYROXINE 137 MCG TAB PO SCH (06:22)
[2022-02-12] MEDS: INSULIN ASPART (NovoLOG) 100 UNIT/ML VIAL SQ SCH ×4 (06:22→20:46)
[2022-02-12 06:53] LABS: African American GFR (CKD) >90 (>60 ml/min/1.73 sqM); Anion Gap 6 mmol/L; Blood Urea Nitrogen 26 mg/dL (7-17); Calcium 9.5 mg/dL (8.4-10.2); Carbon Dioxide 30 mmol/L (22-30); Chloride 100 mmol/L (98-107); Glucose 180 mg/dL (74-99); Non-African American GFR(CKD) >90 (>60 ml/min/1.73 sqM); Potassium 3.5 mmol/L (3.5-5.1); Sodium 136 mmol/L (137-145)
[2022-02-12] MEDS ORDERED: Potassium Replacement Protocol 1 EACH MISC MISCELLANE PRN (07:06)
[2022-02-12] MEDS: SYMBICORT 160-4.5 MCG INHALER INHALATION SCH ×2 (07:42→20:10)
[2022-02-12] MEDS: POTASSIUM CHLORIDE ER 20 MEQ TAB.ER PO SCH ×2 (07:59→09:02)
[2022-02-12] MEDS: PRASUGREL 10 MG TAB PO SCH (07:59)
[2022-02-12] MEDS: SPIRONOLACTONE 25 MG TAB PO SCH (07:59)
[2022-02-12] MEDS: ASPIRIN 81 MG PO SCH (07:59)
[2022-02-12] MEDS: FUROSEMIDE 10 MG/ML 4 ML VIAL IV SCH ×2 (08:00→20:45)
[2022-02-12] MEDS: DOXYCYCLINE 100 MG CAP PO SCH ×2 (08:00→20:45)
[2022-02-12] MEDS: METOPROLOL TARTRATE 25 MG TAB PO SCH ×2 (08:00→20:46)
[2022-02-12] MEDS: metroNIDAZOLE 500 MG TAB PO SCH ×3 (08:00→20:46)
[2022-02-12] MEDS: ESCITALOPRAM 20 MG TAB PO SCH (08:00)
[2022-02-12] MEDS: lisinopriL 5 MG TAB PO SCH (09:03)
--- NOTE | 2022-02-12 09:31 | P.PN ---
Subjective Progress Note Date: 02/11/22 Patient is a 66-year-old female with a known history of hypertension, diabetes type 2 [id number], hyperlipidemia and hypothyroidism and currently everyday smoker presents to ER initially to [facility] with complaints of chest discomfort associate with nausea vomiting and shortness of breath/dyspnea. Patient was found to have ST elevation in the anterior leads. Patient was seen by cardiology and requested transfer to [facility] for cardiac catheterization and PCI. No prior history of cardiac disease. No fever no chills. No recent illnesses. Patient is status post cardiac catheterization showed a acutely occluded proximal LAD and chronically occluded mid LAD. Severe disease in the left circumflex and RCA with collaterals to the RCA. Elevated left ventricular end- diastolic pressures. Successful recanalization and stenting of the LAD proximally with reduction of the stenosis from 90% to 0% in the mid LAD from 100% to 0% diffuse distal vessels. Patient was started Effient and aspirin. Cardiology recommends that patient may need staged revascularization of the RCA and left circumflex. Laboratory pressure sodium 137 potassium 4.8 chloride 102 BUN 23 and creatinine 0.54 and blood sugar is 203 and troponin level was 282 LDL 100.8 02/11/2022 Patient is currently resting in bed. Awake alert and oriented 3. Requiring oxygen via nasal cannula at 2 L. Patient is status post cardiac catheterization and stent placement due to acute anterior wall GA. No complaints of chest pain. Shortness of breath is improving. Patient is being continued on IV Lasix. Continue with breathing treatments. Chest x-ray showed pulmonary edema that could be congestive heart failure. Bilateral mild pleural effusions. 2-D echocardiogram showed mild to moderately dilated left ventricle and dbro-[id number] concentric hypertrophy. Severe hypokinesis of the apical regions findings consistent with possible apical ballooning syndrome. Cardiology is on board and pulmonary was consulted for evaluation. Laboratory data showed WBC 13.6 hemoglobin 12.5 and platelets 228 INR 1.0 and blood sugar is 191. Current medications reviewed. Objective - Vital Signs Vital signs: Vital Signs Temp 98 F 02/11/22 20:00 Pulse 93 02/11/22 21:00 Resp 24 02/11/22 21:00 BP 99/62 02/11/22 21:00 Pulse Ox 93 L 02/11/22 21:00 Intake & Output 04/22/22 04/22/22 04/23/22 06:59 18:59 06:59 Intake Total 440 220 Output Total 674 816 4407 Balance -225 -307 -1000 Weight 101 kg Intake: Oral 440 220 Output: Urine 228 079 7547 Other: Voiding Method Bedside Commode Bedside Commode Bedside Commode # Voids 0 1 - Exam PHYSICAL EXAMINATION: Patient is lying in the bed comfortably, no acute distress, awake alert and oriented.. HEENT: Normocephalic. Neck is supple. Pupils reactive. Nostrils clear. Oral cavity is moist. Neck reveals no JVD, carotid bruits, or thyromegaly. CHEST EXAMINATION: Trachea is central. Symmetrical expansion. Bilateral mild expiratory wheezing and stridor.. CARDIAC: Normal S1, S2 with no gallops. No murmurs ABDOMEN: Soft. Bowel sounds normal. No organomegaly. No abdominal bruits. Extremities: reveal no edema. No clubbing or cyanosis Neurologically awake, alert, oriented x3 with well-coordinated movements. No focal deficits noted Skin: No rash or skin lesions. Psychiatric: Coperative. Nonsuicidal Musculoskeletal: No joint swelling or deformity. Normal range of motion. - Labs CBC & Chem 7: 02/11/22 18:01 02/12/22 05:58 Labs: Abnormal Lab Results - Last 24 Hours (Table) 02/11/22 02/11/22 02/11/22 Range/Units 06:15 07:34 07:34 WBC 11.4 H (3.8-10.6) k/uL Neutrophils # 9.6 H (1.3-7.7) k/uL Sodium 134 L (137-145) mmol/L Chloride 96 L (98-107) mmol/L BUN 19 H (7-17) mg/dL Glucose 216 H (74-99) mg/dL POC Glucose (mg/dL) 232 H (75-99) mg/dL 02/11/22 02/11/22 02/11/22 Range/Units 11:52 16:44 18:01 WBC 13.6 H (3.8-10.6) k/uL Neutrophils # 11.1 H (1.3-7.7) k/uL Sodium (137-145) mmol/L Chloride (98-107) mmol/L BUN (7-17) mg/dL Glucose (74-99) mg/dL POC Glucose (mg/dL) 192 H 191 H (75-99) mg/dL 02/11/22 Range/Units 19:33 WBC (3.8-10.6) k/uL Neutrophils # (1.3-7.7) k/uL Sodium (137-145) mmol/L Chloride (98-107) mmol/L BUN (7-17) mg/dL Glucose (74-99) mg/dL POC Glucose (mg/dL) 246 H (75-99) mg/dL Assessment and Plan Assessment: Acute anterior wall GA. Status post cardiac cath placed and stent placement to LAD. triple-vessel coronary artery disease Acute CHF with systolic dysfunction and possible apical ballooning syndrome. Diabetes type 2 [id number] Hyperlipidemia. LDL 100.8. Hypertension Currently every day smoker possible COPD DVT prophylaxis with heparin subcu Plan: Patientis status post cardiac catheterization and stent placement LAD. Patient is also found to have triple-vesseldisease and may need staged cardiac catheterization. will be continued onaspirin, statin and afebrile. Continue with metoprolol and lisinopril. Patient was started on IV Lasix. Chest x-ray showed pulmonary edema/CHF. A1c level is pending. Continue with insulin sliding scale.. Continue with telemetry monitoring and cardiology is on board.2-D echocardiogram showed possible apical ballooning syndrome.. Smoking cessation has been counseled extensively. Time with Patient: Greater than 30
--- NOTE | 2022-02-12 09:36 | P.PN ---
Subjective Progress Note Date: 02/12/22 Principal diagnosis: COPD/asthma Pulmonary consult dated 02/11/2022. 66-year-old female who was admitted with a diagnosis of ST segment elevation myocardial infarction. She was admitted back on February 09. The patient had 2 stents placed in her LAD, on February 09. She is typically sees Dr. Waggoner as her transport company manager. She tells me that she was diagnosed as having asthma. Curr ently, she is on 2 L nasal cannula. She's not receiving any IV fluids. Earlier, she developed flash pulmonary edema. Her ejection fraction is 20-25%. She was treated with Lasix. She's feeling much better. She has a history of hypertension, diabetes, hyperlipidemia, hypothyroidism, and COPD/asthma. At home, she is on nebulizer treatments with albuterol, and she has a Flovent MDI. She has a 50 year history of tobacco use. She is still smoking when she was admitted to the hospital. Laboratory data includes a white count of 11.4, hemoglobin 12.9, hematocrit 38.4, and a platelet count of 205,000. Sodium 134, potassium 4 chlorides 96, CO2 30, BUN 19, creatinine 0.59. Her initial tropon ins were 170, and 282. Her chest x-ray does show some interstitial changes, consistent with interstitial edema. Progress note dated 02/12/2022. 66-year-old female who was seen yesterday in consultation. She was admitted with a diagnosis of ST segment elevation myocardial infarction. She had 2 s tents placed in her LAD, on February 09. She typically sees another transport company manager. I was asked to see her for her COPD/asthma. At home, she has nebulizer treatments with albuterol, and a Flovent inhaler. Currently, her lung function and her lung status is stable. She's currently on room air. She's not getting any IV fluids. She states that her breathing is just fine. Labs today include a sodium 136, potassium 3.5, chlorides 100, CO2 30, BUN 26, creatinine 0.54. Objective - Vital Signs Vital signs: Vital Signs Temp 98.3 F 02/12/22 08:00 Pulse 75 02/12/22 09:00 Resp 21 02/12/22 09:00 BP 107/70 02/12/22 09:00 Pulse Ox 94 L 02/12/22 09:00 Intake & Output 02/11/22 02/12/22 02/12/22 18:59 06:59 18:59 Intake Total 220 480 Output Total 900 2000 0 Balance -680 -1999 480 Weight 100.8 kg Intake: Oral 220 480 Output: Urine 900 2000 0 Other: Voiding Method Bedside Commode Bedside Commode Bedside Commode # Voids 1 0 # Bowel Movements 1 - Exam No acute distress, oriented 3. Currently on room air. HEENT examination is grossly unremarkable. Neck supple. Full range of motion. No adenopathy thyromegaly or neck vein distention. Cardiovascular examination reveals regular rhythm rate. S1-S2 normal. No S3 or S4. No discernible murmur noted. Heart rate 75 bpm. Lungs reveal mild bibasilar crackles. Breath sounds equal bilaterally. No wheezes. No rhonchi. Saturations are 94% on room air. Abdomen soft bowel sounds are heard. No masses or tenderness. Extremities are intact. No cyanosis clubbing or edema. Skin is without rash or lesion. Neurologic examination is brief but nonfocal. - Labs CBC & Chem 7: 02/11/22 18:01 02/12/22 05:58 Labs: Abnormal Lab Results - Last 24 Hours (Table) 02/11/22 02/11/22 02/11/22 Range/Units 11:52 16:44 18:01 WBC 13.6 H (3.8-10.6) k/uL Neutrophils # 11.1 H (1.3-7.7) k/uL Sodium (137-145) mmol/L BUN (7-17) mg/dL Glucose (74-99) mg/dL POC Glucose (mg/dL) 192 H 191 H (75-99) mg/dL 02/11/22 02/12/22 02/12/22 Range/Units 19:33 05:58 06:10 WBC (3.8-10.6) k/uL Neutrophils # (1.3-7.7) k/uL Sodium 136 L (137-145) mmol/L BUN 26 H (7-17) mg/dL Glucose 180 H (74-99) mg/dL POC Glucose (mg/dL) 246 H 197 H (75-99) mg/dL Assessment and Plan Assessment: Chronic obstructive pulmonary disease/asthma, with a 50 year history of tobacco use, stable. ST segment elevation myocardial infarction, S/P 2 stents to the LAD, February 09. History of hypothyroidism. History of hypertension. History of diabetes. History of hyperlipidemia. Ischemic cardiomyopathy. Plan: Plan dated 02/11/2022. The patient typically sees Dr. Waggoner, her own transport company manager. She apparently was diagnosed as having asthma. She has a 50 year history of tobacco use. More likely, she has chronic obstructive pulmonary disease. She was smoking up until the time she came into the hospital. The patient apparently uses a nebulizer machine at home, and a Flovent inhaler. She's counseled about the importance of smoking cessation. The patient should follow-up with her transport company manager when she is discharged from the hospital. Prognosis is guarded. We will continue to see her while she is in the hospital. Plan dated 02/12/2022. Currently, the patient's doing well. She continues on her home inhalers. The patient's respiratory status is stable. She's been weaned down to room air. The patient's labs are reviewed. No additional recommendations are made. Post discharge, she should return to her own transport company manager. Time with Patient: Less than 30
[2022-02-12 12:48] LABS: Glucose,Whole Blood 297 mg/dL (75-99)
[2022-02-12 13:37] LABS: Glucose,Whole Blood 276 mg/dL (75-99)
--- NOTE | 2022-02-12 14:10 | P.PN ---
Subjective Progress Note Date: 02/12/22 This is Jam gardner NP, I'm dictating on behalf of Dr. Lebron's H&P and A&P. Patient was interviewed and examined. Patient is a pleasant 66-year-old female who initially presented to the hospital with a STEMI. Patient reports that she is feeling much better today, however does state she is a little sore from coughing. Patient is status post day 3 of stent placement in the LAD. GENERAL: Well-appearing, well-nourished and in no acute distress. NECK: Supple without JVD or thyromegaly. LUNGS: Breath sounds clear to auscultation bilaterally. Respiration equal and unlabored. No wheezes, rales or rhonchi. HEART: Regular rate and rhythm without murmurs, rubs or gallops. S1 and S2 heard. EXTREMITIES: Normal range of motion, no edema. No clubbing or cyanosis. Peripheral pulses intact and strong. VITALS: Temp 98.6, pulse 75, respirations 15, blood pressure 94/59, O2 saturation 96% on room air TELEMETRY: Normal sinus rhythm LABS: White count 13.6, hemoglobin 12.5, platelets 228, sodium 136, potassium 3.5, B1 26, creatinine 0.54, IMPRESSION/PLAN: 1. Acute anterior wall IN status post stent to the LAD-continue dual antiplatelet therapy and statins. Continue IV Lasix. Continue spironolactone low-dose lisinopril. Continue metoprolol. We will switch to carvedilol secondary to lower blood pressures. 2. Congestive heart failure-patient had flash pulmonary edema yesterday, and responded well to IV Lasix. 3. Severe LV dysfunction- See #1 Further recommendations pending based on patient's clinical course. Patient may be transferred out of the ICU today. Objective - Vital Signs Vital signs: Vital Signs Temp 98.6 F 02/12/22 12:00 Pulse 85 02/12/22 13:00 Resp 23 02/12/22 13:00 BP 91/60 02/12/22 13:00 Pulse Ox 97 02/12/22 13:00 Intake & Output 02/11/22 02/12/22 02/12/22 18:59 06:59 18:59 Intake Total 220 480 Output Total 900 1999 400 Balance - 80 Weight 100.8 kg Intake: Oral 220 480 Output: Urine 900 2000 400 Other: Voiding Method Bedside Commode Bedside Commode Bedside Commode # Voids 1 0 # Bowel Movements 1 - Labs CBC & Chem 7: 02/11/22 18:01 02/12/22 05:58 Labs: Abnormal Lab Results - Last 24 Hours (Table) 02/11/22 02/11/22 02/11/22 Range/Units 16:44 18:01 19:33 WBC 13.6 H (3.8-10.6) k/uL Neutrophils # 11.1 H (1.3-7.7) k/uL Sodium (137-145) mmol/L BUN (7-17) mg/dL Glucose (74-99) mg/dL POC Glucose (mg/dL) 191 H 246 H (75-99) mg/dL 02/12/22 02/12/22 02/12/22 Range/Units 05:58 06:10 12:47 WBC (3.8-10.6) k/uL Neutrophils # (1.3-7.7) k/uL Sodium 136 L (137-145) mmol/L BUN 26 H (7-17) mg/dL Glucose 180 H (74-99) mg/dL POC Glucose (mg/dL) 197 H 297 H (75-99) mg/dL 02/12/22 Range/Units 13:36 WBC (3.8-10.6) k/uL Neutrophils # (1.3-7.7) k/uL Sodium (137-145) mmol/L BUN (7-17) mg/dL Glucose (74-99) mg/dL POC Glucose (mg/dL) 276 H (75-99) mg/dL
[2022-02-12 16:21] LABS: Glucose,Whole Blood 159 mg/dL (75-99)
[2022-02-12 18:35] VITALS: RESP 18
[2022-02-12] MEDS: ATORVASTATIN 80 MG TAB PO SCH (20:45)
[2022-02-12] MEDS: MONTELUKAST 10 MG TAB PO SCH (20:46)
[2022-02-12 20:55] LABS: Glucose,Whole Blood 200 mg/dL (75-99)
--- NOTE | 2022-02-12 21:41 | P.PN ---
Subjective Progress Note Date: 02/12/22 Patient is a 66-year-old female with a known history of hypertension, diabetes type 2 [id number], hyperlipidemia and hypothyroidism and currently everyday smoker presents to ER initially to [facility] with complaints of chest discomfort associate with nausea vomiting and shortness of breath/dyspnea. Patient was found to have ST elevation in the anterior leads. Patient was seen by cardiology and requested transfer to [facility] for cardiac catheterization and PCI. No prior history of cardiac disease. No fever no chills. No recent illnesses. Patient is status post cardiac catheterization showed a acutely occluded proximal LAD and chronically occluded mid LAD. Severe disease in the left circumflex and RCA with collaterals to the RCA. Elevated left ventricular end- diastolic pressures. Successful recanalization and stenting of the LAD proximally with reduction of the stenosis from 90% to 0% in the mid LAD from 100% to 0% diffuse distal vessels. Patient was started Effient and aspirin. Cardiology recommends that patient may need staged revascularization of the RCA and left circumflex. Laboratory pressure sodium 137 potassium 4.8 chloride 102 BUN 23 and creatinine 0.54 and blood sugar is 203 and troponin level was 282 LDL 100.8 02/11/2022 Patient is currently resting in bed. Awake alert and oriented 3. Requiring oxygen via nasal cannula at 2 L. Patient is status post cardiac catheterization and stent placement due to acute anterior wall RI. No complaints of chest pain. Shortness of breath is improving. Patient is being continued on IV Lasix. Continue with breathing treatments. Chest x-ray showed pulmonary edema that could be congestive heart failure. Bilateral mild pleural effusions. 2-D echocardiogram showed mild to moderately dilated left ventricle and [id number] concentric hypertrophy. Severe hypokinesis of the apical regions findings consistent with possible apical ballooning syndrome. Cardiology is on board and pulmonary was consulted for evaluation. Laboratory data showed WBC 13.6 hemoglobin 12.5 and platelets 228 INR 1.0 and blood sugar is 191. 02/12/2022 Patient is currently resting in the bed. Awake alert and oriented x3. Breathing status is better today. Patient is being current Lasix 40 mg every 12 and duo nebs and Symbicort was added. No complaints of chest pain. No nausea vomiting abdominal pain or diarrhea. Patient is transferred to telemetry unit. Laboratory data showed sodium 136 potassium 3.5 chloride 100 BUN 26 and creatinine 0.54 and calcium 9.5. Cardiology and pulmonary is following. Current medications reviewed. Objective - Vital Signs Vital signs: Vital Signs Temp 97.9 F 02/12/22 20:00 Pulse 86 02/12/22 20:00 Resp 18 02/12/22 20:00 BP 106/68 02/12/22 20:00 Pulse Ox 95 02/12/22 20:00 Intake & Output 02/12/22 02/12/22 02/13/22 06:59 18:59 06:59 Intake Total 716 Output Total 1999 400 Balance -1999 316 Weight 100.8 kg Intake: Oral 716 Output: Urine 1999 400 Other: Voiding Method Bedside Commode Bedside Commode # Voids 2 # Bowel Movements 1 - Exam PHYSICAL EXAMINATION: Patient is lying in the bed comfortably, no acute distress, awake alert and oriented.. HEENT: Normocephalic. Neck is supple. Pupils reactive. Nostrils clear. Oral cavity is moist. Neck reveals no JVD, carotid bruits, or thyromegaly. CHEST EXAMINATION: Trachea is central. Symmetrical expansion. Bilateral mild expiratory wheezing ... CARDIAC: Normal S1, S2 with no gallops. No murmurs ABDOMEN: Soft. Bowel sounds normal. No organomegaly. No abdominal bruits. Extremities: reveal no edema. No clubbing or cyanosis Neurologically awake, alert, oriented x3 with well-coordinated movements. No focal deficits noted Skin: No rash or skin lesions. Psychiatric: Coperative. Nonsuicidal Musculoskeletal: No joint swelling or deformity. Normal range of motion. - Labs CBC & Chem 7: 02/11/22 18:01 02/12/22 05:58 Labs: Abnormal Lab Results - Last 24 Hours (Table) 02/12/22 02/12/22 02/12/22 Range/Units 05:58 06:10 12:47 Sodium 136 L (137-145) mmol/L BUN 26 H (7-17) mg/dL Glucose 180 H (74-99) mg/dL POC Glucose (mg/dL) 197 H 297 H (75-99) mg/dL 02/12/22 02/12/22 02/12/22 Range/Units 13:36 16:20 20:36 Sodium (137-145) mmol/L BUN (7-17) mg/dL Glucose (74-99) mg/dL POC Glucose (mg/dL) 276 H 159 H 200 H (75-99) mg/dL Assessment and Plan Assessment: Acute anterior wall RI. Status post cardiac cath placed and stent placement to LAD. triple-vessel coronary artery disease Acute CHF with systolic dysfunction and possible apical ballooning syndrome. Diabetes type 2 [id number] Hyperlipidemia. LDL 100.8. Hypertension Currently every day smoker possible COPD DVT prophylaxis with heparin subcu Plan: Patientis status post cardiac catheterization and stent placement LAD. Patient is also found to have triple-vesseldisease and may need staged cardiac catheterization. will be continued onaspirin, statin and afebrile. Continue with metoprolol and lisinopril. Patient is on IV Lasix. Chest x-ray showed pulmonary edema/CHF. A1c level is pending. Continue with insulin sliding scale.. Continue with telemetry monitoring and cardiology is on board.2-D echocardiogram showed possible apical ballooning syndrome.. Smoking cessation has been counseled extensively. Time with Patient: Greater than 30
[2022-02-13] MEDS: LEVOTHYROXINE 137 MCG TAB PO SCH (06:28)
[2022-02-13] MEDS: INSULIN ASPART (NovoLOG) 100 UNIT/ML VIAL SQ SCH ×2 (06:28→12:20)
[2022-02-13 06:37] LABS: Glucose,Whole Blood 201 mg/dL (75-99)
[2022-02-13] MEDS: SYMBICORT 160-4.5 MCG INHALER INHALATION SCH (08:20)
[2022-02-13 09:05] LABS: Basophils % (A) 0 %; Eosinophils % (A) 0 %; HCT 37.8 % (34.0-46.0); HGB 12.3 gm/dL (11.4-16.0); Lymphocytes # (A) 1.6 k/uL (1.0-4.8); Lymphocytes % (A) 17 %; MCH 30.2 pg (25.0-35.0); MCHC 32.4 g/dL (31.0-37.0); MCV 93.1 fL (80.0-100.0); Mean Platelet Volume 7.7; Monocytes # (A) 0.4 k/uL (0-1.0); Monocytes % (A) 4 %; Neutrophils # (A) 7.2 k/uL (1.3-7.7); Neutrophils % (A) 78 %; Platelet Count 241 k/uL (150-450); RBC 4.06 m/uL (3.80-5.40); RDW 14.1 % (11.5-15.5); WBC 9.3 k/uL (3.8-10.6)
[2022-02-13 09:13] LABS: African American GFR (CKD) >90 (>60 ml/min/1.73 sqM); Anion Gap 10 mmol/L; Blood Urea Nitrogen 37 mg/dL (7-17); Calcium 9.4 mg/dL (8.4-10.2); Carbon Dioxide 27 mmol/L (22-30); Chloride 98 mmol/L (98-107); Glucose 239 mg/dL (74-99); Non-African American GFR(CKD) >90 (>60 ml/min/1.73 sqM); Potassium 3.5 mmol/L (3.5-5.1); Sodium 135 mmol/L (137-145)
[2022-02-13] MEDS: lisinopriL 5 MG TAB PO SCH (10:19)
[2022-02-13] MEDS: DOXYCYCLINE 100 MG CAP PO SCH (10:19)
[2022-02-13] MEDS: SPIRONOLACTONE 25 MG TAB PO SCH (10:19)
[2022-02-13] MEDS: PRASUGREL 10 MG TAB PO SCH (10:20)
[2022-02-13] MEDS: METOPROLOL TARTRATE 25 MG TAB PO SCH (10:20)
[2022-02-13] MEDS: FUROSEMIDE 10 MG/ML 4 ML VIAL IV SCH (10:20)
[2022-02-13] MEDS: ESCITALOPRAM 20 MG TAB PO SCH (10:20)
[2022-02-13] MEDS: ASPIRIN 81 MG PO SCH (10:20)
[2022-02-13] MEDS: metroNIDAZOLE 500 MG TAB PO SCH (10:20)
[2022-02-13 10:56] VITALS: BP 106/71; PULSE 73; TEMP 98.7
[2022-02-13 12:00] LABS: Glucose,Whole Blood 189 mg/dL (75-99)
--- NOTE | 2022-02-13 13:00 | P.PN ---
Subjective Progress Note Date: 02/13/22 This is Jam Momin NP, I'm dictating on behalf of Dr. Lebron's H&P and A&P. Patient was interviewed and examined. Patient is pleasant 66-year-old female who initially presented to the hospital with STEMI, she was transferred from ICU yesterday general medical floor. Patient reports that she's feeling good today, and states "I'm doing wonderful". Patient's currently denying chest pain, shortness of breath, dizziness, syncope. Patient appears to be doing well post stent placement. She was given IV Lasix couple days ago for flash pulmonary edema, and appears to have no sequelae at this time. From a cardiology standpoint the patient can be discharged. Patient should follow-up with Dr. Mendiola in 1 to 2 days. GENERAL: Well-appearing, well-nourished and in no acute distress. NECK: Supple without JVD or thyromegaly. LUNGS: Breath sounds clear to auscultation bilaterally. Respiration equal and unlabored. No wheezes, rales or rhonchi. HEART: Regular rate and rhythm without murmurs, rubs or gallops. S1 and S2 heard. EXTREMITIES: Normal range of motion, no edema. No clubbing or cyanosis. Peripheral pulses intact and strong. VITALS: Temp 98.7, pulse 73, respirations 18, blood pressure 106/71 O2, saturation 96% on room air TELEMETRY: Normal sinus rhythm LABS: White count 9.3, hemoglobin 12.3, platelets 241, sodium 135, potassium 3.5, B1 37, creatinine 0.69, calcium 9.4 IMPRESSION/PLAN: 1. Acute anterior wall [place] status post stent to the LAD-patient should be discharged on dual antiplatelet therapy and statins. Lasix can be changed to oral. We'll continue spironolactone, and low-dose lisinopril. Continue metoprolol. 2. Congestive heart failure-recommend switching to oral Lasix. 3. Severe LV dysfunction-recommendations as above. Patient should see Dr. Keys within 1 to 2 days. Patient may be discharged from a cardiology standpoint. Please do not hesitate to reconsult us if any further recommendations are needed. Objective - Vital Signs Vital signs: Vital Signs Temp 98.7 F 02/13/22 08:00 Pulse 73 02/13/22 08:00 Resp 18 02/13/22 08:00 BP 106/71 02/13/22 08:00 Pulse Ox 96 02/13/22 08:00 Intake & Output 02/12/22 02/13/22 02/13/22 18:59 06:59 18:59 Intake Total 716 Output Total 400 Balance 316 Weight 100.5 kg Intake: Oral 716 Output: Urine 400 Other: Voiding Method Bedside Commode # Voids 2 2 # Bowel Movements 1 - Labs CBC & Chem 7: 02/13/22 08:06 02/13/22 08:06 Labs: Abnormal Lab Results - Last 24 Hours (Table) 02/12/22 02/12/22 02/12/22 Range/Units 13:36 16:20 20:36 Sodium (137-145) mmol/L BUN (7-17) mg/dL Glucose (74-99) mg/dL POC Glucose (mg/dL) 276 H 159 H 200 H (75-99) mg/dL 02/13/22 02/13/22 02/13/22 Range/Units 06:16 08:06 11:59 Sodium 135 L (137-145) mmol/L BUN 37 H (7-17) mg/dL Glucose 239 H (74-99) mg/dL POC Glucose (mg/dL) 201 H 189 H (75-99) mg/dL
--- NOTE | 2022-02-13 14:39 | P.PN ---
Subjective Progress Note Date: 02/13/22 Principal diagnosis: COPD/asthma Pulmonary consult dated 02/11/2022. 66-year-old female who was admitted with a diagnosis of ST segment elevation myocardial infarction. She was admitted back on February 09. The patient had 2 stents placed in her LAD, on February 09. She is typically sees Dr. Waggoner as her blasting gang miner. She tells me that she was diagnosed as having asthma. Curr ently, she is on 2 L nasal cannula. She's not receiving any IV fluids. Earlier, she developed flash pulmonary edema. Her ejection fraction is 20-25%. She was treated with Lasix. She's feeling much better. She has a history of hypertension, diabetes, hyperlipidemia, hypothyroidism, and COPD/asthma. At home, she is on nebulizer treatments with albuterol, and she has a Flovent MDI. She has a 50 year history of tobacco use. She is still smoking when she was admitted to the hospital. Laboratory data includes a white count of 11.4, hemoglobin 12.9, hematocrit 38.4, and a platelet count of 205,000. Sodium 134, potassium 4 chlorides 96, CO2 30, BUN 19, creatinine 0.59. Her initial tropon ins were 170, and 282. Her chest x-ray does show some interstitial changes, consistent with interstitial edema. Progress note dated 02/12/2022. 66-year-old female who was seen yesterday in consultation. She was admitted with a diagnosis of ST segment elevation myocardial infarction. She had 2 s tents placed in her LAD, on February 09. She typically sees another blasting gang miner. I was asked to see her for her COPD/asthma. At home, she has nebulizer treatments with albuterol, and a Flovent inhaler. Currently, her lung function and her lung status is stable. She's currently on room air. She's not getting any IV fluids. She states that her breathing is just fine. Labs today include a sodium 136, potassium 3.5, chlorides 100, CO2 30, BUN 26, creatinine 0.54. Progress note dated 02/13/2022. 66-year-old female seen in consultation 2 days ago. She was admitted with a diagnosis of ST segment elevation myocardial infarction. She went to the catheterization laboratory and had 2 stents placed in her LAD. This was done on 02/09/2022. She typically sees a different blasting gang miner. She has a history of COPD/asthma. She is using on albuterol and Flovent for her lungs. Currently, she is on room air. He is feeling well. She is hoping to be discharged soon. Laboratory data today includes a normal CBC. Sodium 135, potassium 3.5, chlorides 98, CO2 27, BUN 37, and creatinine 0.69. Objective - Vital Signs Vital signs: Vital Signs Temp 98.7 F 02/13/22 08:00 Pulse 73 02/13/22 08:00 Resp 18 02/13/22 08:00 BP 106/71 02/13/22 08:00 Pulse Ox 96 02/13/22 08:00 Intake & Output 02/12/22 02/13/22 02/13/22 18:59 06:59 18:59 Intake Total 716 Output Total 400 Balance 316 Weight 100.5 kg Intake: Oral 716 Output: Urine 400 Other: Voiding Method Bedside Commode # Voids 2 2 # Bowel Movements 1 - Exam No acute distress, oriented 3. Currently on room air. HEENT examination is grossly unremarkable. Neck supple. Full range of motion. No adenopathy thyromegaly or neck vein distention. Cardiovascular examination reveals regular rhythm rate. S1-S2 normal. No S3 or S4. No discernible murmur noted. Heart rate 73 bpm. Lungs reveal mild bibasilar crackles. Breath sounds equal bilaterally. No wheezes. No rhonchi. Saturations are 96% on room air. Abdomen soft bowel sounds are heard. No masses or tenderness. Extremities are intact. No cyanosis clubbing or edema. Skin is without rash or lesion. Neurologic examination is brief but nonfocal. - Labs CBC & Chem 7: 02/13/22 08:06 02/13/22 08:06 Labs: Abnormal Lab Results - Last 24 Hours (Table) 02/12/22 02/12/22 02/13/22 Range/Units 16:20 20:36 06:16 Sodium (137-145) mmol/L BUN (7-17) mg/dL Glucose (74-99) mg/dL POC Glucose (mg/dL) 159 H 200 H 201 H (75-99) mg/dL 02/13/22 02/13/22 Range/Units 08:06 11:59 Sodium 135 L (137-145) mmol/L BUN 37 H (7-17) mg/dL Glucose 239 H (74-99) mg/dL POC Glucose (mg/dL) 189 H (75-99) mg/dL Assessment and Plan Assessment: Chronic obstructive pulmonary disease/asthma, with a 50 year history of tobacco use, stable. ST segment elevation myocardial infarction, S/P 2 stents to the LAD, February 09. History of hypothyroidism. History of hypertension. History of diabetes. History of hyperlipidemia. Ischemic cardiomyopathy. Plan: Plan dated 02/11/2022. The patient typically sees Dr. Waggoenr, her own blasting gang miner. She apparently was diagnosed as having asthma. She has a 50 year history of tobacco use. More likely, she has chronic obstructive pulmonary disease. She was smoking up until the time she came into the hospital. The patient apparently uses a nebulizer machine at home, and a Flovent inhaler. She's counseled about the importance of smoking cessation. The patient should follow-up with her blasting gang miner when she is discharged from the hospital. Prognosis is guarded. We will continue to see her while she is in the hospital. Plan dated 02/12/2022. Currently, the patient's doing well. She continues on her home inhalers. The patient's respiratory status is stable. She's been weaned down to room air. The patient's labs are reviewed. No additional recommendations are made. Post discharge, she should return to her own blasting gang miner. Plan dated 02/13/2022. Currently, the patient's doing pretty well. She states that her breathing is much improved. In addition, she's not having any chest pain or chest disc omfort. She will follow-up with her primary care physician, and her blasting gang miner in the near future. She also will see her ceramic capacitor processor. The patient does not need any refills today. She is hoping to be discharged home today. We'll leave that up to the primary service. No additional recommenda tions are made. Prognosis is guarded. She is counseled about the importance of smoking cessation. Time with Patient: Less than 30
--- NOTE | 2022-02-16 11:41 | CDI ---
Documentation Clarification Form Date: 02/16/22 From: Isabela Felipe Admit Date: 02/09/2022 11:48:00 AM Patient Name: Lary Viramontes Visit Number: [id number] Discharge Date: 02/13/2022 02:43:00 PM ATTENTION: The Clinical Documentation Specialists (CDI) and [facility] Coding Staff appreciate your assistance in clarifying documentation. Please respond to the clarification below the line at the bottom and electronically sign. The CDI & [facility] Coding staff will review the response and follow-up if needed. Please note: Queries are made part of the Legal Health Record. If you have any questions, please contact the author of this message via ITS. Dr. Guanaco Quinones, Your patient has possible apical ballooning syndrome per 02/10 Echo. Based on this information and the findings below, is there an additional diagnosis that is clinically appropriate for this patient? Patient history/risk factors: STEMI-anterior, acute systolic CHF w HTN, Type II DM, COPD, CAD, ischemic cardiomyopathy, HLD, smokes cigarettes Clinical Indicators: Per echo: Mild to moderately dilated left ventricle with mild to moderate concentric hypertrophy. Severe hypokinesia of the apical regions with only basal segments showing good contraction.The findings are consistent with possible apical ballooning syndrome. Treatment: Continue with Metoprolol and Lisinopril Is there an additional diagnosis that is clinically appropriate for this patient? [ ] Apical ballooning syndrome [ ] No apical ballooning syndrome [ ] Other, please specify [ xxx ] Unable to determine MTDD
== END 2022-02-13 14:43 | disposition home or self-care (01) | DRG 246 ==
LOC: 2SICU 11:48 → 3SCARD 02-12 13:55
PROVIDERS: ADMIT Hospitalist; ATTEND Hospitalist
PROC: 027035Z Dilation of Coronary Artery, One Artery with Two Drug-eluting Intraluminal Devices, Percutaneous Approach (ICD-10-PCS; principal; 2022-02-09 08:00)
PROC: B2111ZZ Fluoroscopy of Multiple Coronary Arteries using Low Osmolar Contrast (ICD-10-PCS; principal; 2022-02-09 08:00)
PROC: 4A023N7 Measurement of Cardiac Sampling and Pressure, Left Heart, Percutaneous Approach (ICD-10-PCS; principal; 2022-02-09 08:00)
DX: I21.09 ST elevation (STEMI) myocardial infarction involving other coronary artery of anterior wall (principal); I50.21 Acute systolic (congestive) heart failure; I45.89 Other specified conduction disorders; Z68.41 Body mass index [BMI] 40.0-44.9, adult; I11.0 Hypertensive heart disease with heart failure; E11.9 Type 2 diabetes mellitus without complications; J44.9 Chronic obstructive pulmonary disease, unspecified; I25.10 Atherosclerotic heart disease of native coronary artery without angina pectoris; I25.84 Coronary atherosclerosis due to calcified coronary lesion; I25.5 Ischemic cardiomyopathy; E66.9 Obesity, unspecified; I49.3 Ventricular premature depolarization; E78.5 Hyperlipidemia, unspecified; E03.9 Hypothyroidism, unspecified; F17.210 Nicotine dependence, cigarettes, uncomplicated; Z71.6 Tobacco abuse counseling; Z79.82 Long term (current) use of aspirin; Z79.890 Hormone replacement therapy; Z79.84 Long term (current) use of oral hypoglycemic drugs; Z79.899 Other long term (current) drug therapy; Z90.49 Acquired absence of other specified parts of digestive tract; Z87.19 Personal history of other diseases of the digestive system; Z98.890 Other specified postprocedural states; Z71.3 Dietary counseling and surveillance; Z88.0 Allergy status to penicillin; Z83.3 Family history of diabetes mellitus
CPT/HCPCS: 71045; 80048; 80061; 83036; 84484; 85025; 85610; 85730; 93306; 93458; 94640

== ENCOUNTER 2022-03-10 06:28 | Day surgery (SDC) | payer MEDICARE, OTHER ==
[~2022-03-10 06:28] MED LIST: ALPRAZolam 0.25 MG TAB PO PRN; ALPRAZolam 0.5 MG TAB PO PRN; ASPIRIN 325 MG TAB PO STA; ATORVASTATIN 80 MG TAB PO STA; HEPARIN SODIUM,PORCINE 10,000 UNIT in SODIUM CHLORIDE 0.9% 1,000 ML IRRIGATION PRN; HEPARIN SODIUM,PORCINE 2,500 UNIT in SODIUM CHLORIDE 0.9% 250 ML IRRIGATION PRN; NITROGLYCERIN SL TABS 0.4 MG TAB SUBLINGUAL PRN
[2022-03-10] MEDS ORDERED: fentaNYL (PF) 50 MCG/ML 2 ML AMP ONE (07:12)
[2022-03-10] MEDS ORDERED: VERAPAMIL 2.5 MG/ML 2 ML AMP ONE (07:12)
[2022-03-10] MEDS ORDERED: HEPARIN SODIUM 1,000 UN/ML (10ML VL) ONE ×2 (07:13→10:00)
[2022-03-10 07:16] LABS: Glucose,Whole Blood 148 mg/dL (75-99)
[2022-03-10] MEDS ORDERED: SODIUM CHLORIDE 0.9% 1,000 ML IV ONE (07:17)
[2022-03-10] MEDS ORDERED: PRASUGREL 10 MG TAB ONE (07:28)
[2022-03-10] MEDS ORDERED: PRASUGREL 10 MG TAB PO ONE (07:29)
[2022-03-10] MEDS: fentaNYL (PF) 50 MCG/ML 2 ML AMP IV ONE ×2 (07:47→09:23)
[2022-03-10] MEDS ORDERED: LIDOCAINE 1% INJ 10MG/ML (5 ML VIAL-PF) SQ ONE (07:49)
[2022-03-10] MEDS: MIDAZOLAM 2 MG/2 ML VIAL IV ONE ×2 (07:50→09:00)
[2022-03-10] MEDS ORDERED: VERAPAMIL SYRINGE (5 MG/10 ML) INTRAARTER ONE (07:53)
[2022-03-10] MEDS ORDERED: IOPAMIDOL-370 125ML BTL INJ ONE (08:20)
[2022-03-10] MEDS ORDERED: IOPAMIDOL-370 100ML BTL INJ ONE ×2 (09:16→09:52)
[2022-03-10] MEDS ORDERED: ZOLPIDEM 5 MG TAB PO PRN (10:08)
[2022-03-10] MEDS ORDERED: MAG HYDROX/AL HYDROX/SIMETH 30 ML CUP PO PRN (10:08)
[2022-03-10] MEDS ORDERED: NITROGLYCERIN SL TABS 0.4 MG TAB SUBLINGUAL PRN (10:08)
[2022-03-10] MEDS ORDERED: ATROPINE SULFATE 0.1 MG/ML 10ML SYRINGE IV PRN (10:08)
[2022-03-10] MEDS ORDERED: RX INFO: IV CONTRAST WAS GIVEN 1 EACH MISC MISCELLANE PRN (10:08)
[2022-03-10] MEDS ORDERED: SODIUM CHLORIDE 0.9% 1,000 ML in EMPTY BAG 1 BAG IV SCH (10:15)
[2022-03-10] MEDS: SODIUM CHLORIDE 0.9% 1,000 ML in EMPTY BAG 1 BAG IV SCH ×2 (12:58→18:09)
--- NOTE | 2022-03-10 13:25 | P.CARDCATH ---
Date of Procedure: 03/10/22 Description of Procedure: Cardiac Catheterization: The patient is a 66-year-old female with known history of hypertension, hyperlipidemia and diabetes who presented few weeks ago with an acute anterolateral myocardial infarction with totally occluded proximal LAD and she underwent stenting of the proximal and mid LAD. She has diffuse intimal disease in the LAD. At the same time she was found to have critical stenosis in the left circumflex and the RCA. She presents today for further evaluation. Loc mmendations were made regarding cardiac catheterization, the risks and the complications were discussed with the patient who is in full understanding and agreement. Procedure Description: Patient was brought to laborer brush clearing in fasting semi-sedated state after receiving Fentanyl and Benadryl achieiving moderate conscious sedated state. Using Xylocaine Anesthesia and Seldinger technique, a 6-Bangladeshi sheath was introduced in the left radial artery . Subsequently, selective coronary angiography performed using a 6-Bangladeshi 3.75 left EBU catheter and 0.75 AL guiding catheter. Multiple views of the coronary artery including hemiaxial views were obtained. After obtaining images of the left coronary angioplasty and stenting of the left circumflex was performed subsequently angioplasty and stenting of the RCA was performed. Full detail of the procedure will be dictated separately. Following that, catheter and sheath were removed. Hemostasis was obtained with deployment of TR band . There was no immediate complication. Patient was returned to room in stable condition. Of note, the patient received a total of a total of 11,000 units of intravenous heparin as well as intra-arterial verapamil. There was no immediate complications. Her ACT was monitored, she had chest discomfort with the impression of the RCA and no significant EKG changes Findings: Fluoroscopy showed severe calcification of all the coronary arteries Left main: This is a short sized vessel, bifurcating into LAD and left circumflex, left main has no high-grade stenosis. LAD: This is a large size vessel, the stented segment proximally is patent. The vessel has diffuse intimal disease in the mid and distal segment after the second stent with small caliber vessel. There is no evidence of in-stent restenosis. Left circumflex: This is a large codominant vessel, giving rise to 3 obtuse marginal branch distally bifurcating into PDA and PLV. The third obtuse marginal branch in the mid segment has intimal disease up to 70% the vessel beyond the small in caliber. Prior to the bifurcation of the PDA is an 85% stenosis RCA: This is a codominant vessel, calcified. The mid segment of the RCA has diffuse severe stenosis up to 99%, the distal RCA has intimal disease up to 60- 70% stenosis. Angioplasty and stenting: Using a 6-Bangladeshi 3.75 left EBU guiding catheter and after obtaining images of the left coronary system a 0.014 BMW wire was advanced and in the distal left PDA subsequently a 2.5 x 12 mm NC Treck was advanced and one inflation at 8 soraida was found. After removing the balloon a 2.5 x 18 mm Xience chano point stent was advanced deployed and postdilated at 16 soraida, following that and after removing the balloon a 3.0 x 8 mm NC Treck balloon was advanced and one inflation in the proximal stent was done at 12 soraida. After removing the balloon a 2.5 x 12 mm Xience chano point stent was deployed distal to the first one and postdilated at 16 soraida. After the last inflation and after appropriate wait the balloon and the guidewire were withdrawn back in the guiding catheter, images were obtained and repeated and revealed stable successful stenting. At that point the guiding catheter, the balloon and the guidewire were removed. A 6-Bangladeshi 0.75 AL guiding catheter was introduced and the ostium of the RCA was cannulated. Attempt to advance a 0.014 BMW wire distally were unsuccessful, the wire was removed and a 0.014 whisper J-wire with a straight super cross catheter were introduced. After positioning the wire distally the microcatheter was removed and a 1.0 x 8 mm Sapphire balloon was advanced and multiple inflation at 8 soraida were done after removing the balloon a 1.5 x 8 mm mini Treck balloon was advanced and inflation at 10 soraida were done. Subsequently the wire was exchanged through the microcatheter to 0.014 BMW wire. Attempts to advance a 2.0 balloon were unsuccessful, a Guide Ifeoma was advanced and with the help of the support the 2.0 x 12 mm balloon was advanced and inflation at 10 soraida were done after removing the balloon a 2.0 x 12 and subsequently 2.5 x 12 mm NC Treck was advanced and multiple inflations at a maximum of 25 soraida were done but were unsuccessful in opening a segment in the mid artery that was heavily calcified. At that time and after removing the balloon attempts to advance an angiosculpt balloon were unsuccessful the balloon was removed and the microcatheter was reintroduced and the wire was exchanged to a Viper wire, subsequently a reji 360 atherectomy device was advanced and 3 runs were done, the first to close the and the third at a higher speed. Following that the wire was exchanged to the BMW and a 2.5 x 12 mm balloon was advanced and inflations were done with total opening of the balloon. Subsequently a 2.5 x 38 mm Xience chano point stent was advanced deployed and postdilated at 16 soraida after removing the balloon a 2.5 x 23 mm Xience chano point stent was deployed proximal to the first one at 16 soraida. After removing the balloon a 3.0 x 15 NC Treck balloon was advanced and multiple inflation at a maximum of 12 soraida were done. Patient had chest discomfort with the inflations of the RCA but no significant EKG changes. She will be continued on Effient. Conclusion: 1. Calcified coronary arteries 2. Patent stent in the LAD with diffuse intimal disease 3. Critical stenosis in the distal dominant left circumflex was successful stenting reduction of the stenosis from 85% to 0% 4. Critical stenosis in the mid RCA with successful stenting of the vessel with reduction of the stenosis from 99% to 0% Recommendations: The patient will be continued on dual antiplatelet treatment with aspirin and Effient for at least one year. Aggressive coronary risks modifications will be continued. Depending on her symptoms and her progress further recommendations will be made regarding treatment of the diffusely diseased LAD. The findings and recommendations were discussed with the patient and her family. They are in full understanding and agreement. Duration of sedation is 105 minutes.
[2022-03-10 14:29] VITALS: BMI 39.3
[2022-03-10] MEDS ORDERED: ACETAMINOPHEN TAB 325 MG TAB PO PRN (18:25)
[2022-03-10] MEDS ORDERED: MONTELUKAST 10 MG TAB PO SCH (21:00)
[2022-03-10 21:49] VITALS: RESP 18
[2022-03-10] MEDS: METOPROLOL TARTRATE 25 MG TAB PO SCH (23:58)
[2022-03-11] MEDS: SODIUM CHLORIDE 0.9% 1,000 ML in EMPTY BAG 1 BAG IV SCH (03:21)
[2022-03-11] MEDS ORDERED: LEVOTHYROXINE 137 MCG TAB PO SCH (06:30)
--- NOTE | 2022-03-11 07:20 | P.PN ---
Subjective Progress Note Date: 03/11/22 PROGRESS NOTE The patient is a 66-year-old female with a known history of CAD status post recent anterior wall myocardial infarction status post stenting of the LAD that was found to have significant obstructive disease in the left circumflex and RCA, she was admitted yesterday and underwent stenting of the left circumflex and the RCA with atherectomy. She is feeling well today. She denies any chest discomfort, dizziness or palpitations. She continues to be on aspirin once a day, Effient 10 mg daily, Lopressor 25 mg twice a day, Lipitor 80 mg daily, lisinopril 5 mg daily, Aldactone 25 mg daily, levothyroxine. PHYSICAL EXAMINATION: Blood pressure 98/48 heart rate 69 LUNGS: [Clear to auscultation] HEART: [Regular rate and rhythm, S1, S2. No S3. systolic ejection murmur 2/6] ABDOMEN: [Soft, nontender, no organomegaly] EXTREMETIES: [No edema, left radial pulse intact] LAB: EKG reveals sinus mechanism with evidence of anterolateral wall myocardial infarction. IMPRESSION: 1. Status post stenting of the RCA in the left circumflex 2. Post recent anterior wall myocardial infarction with severe cardiomyopathy 3. Diabetes 4. Hyperlipidemia PLAN: The patient will be discharged home today and continue on her present medical therapy, depending on her progress further recommendations will be made. Objective - Vital Signs Vital signs: Vital Signs Temp 98.6 F 03/11/22 00:59 Pulse 69 03/11/22 02:27 Resp 18 03/11/22 02:27 BP 98/48 03/11/22 00:59 Pulse Ox 96 03/11/22 00:59 Intake & Output 03/10/22 03/11/22 03/11/22 18:59 06:59 18:59 Intake Total 418 Balance 418 Weight 100.7 kg Intake: IV 300 Oral 118 Other: # Voids 2 2
[2022-03-11 07:21] LABS: African American GFR (CKD) >90 (>60 ml/min/1.73 sqM); Anion Gap 6 mmol/L; Blood Urea Nitrogen 14 mg/dL (7-17); Calcium 9.4 mg/dL (8.4-10.2); Carbon Dioxide 28 mmol/L (22-30); Chloride 104 mmol/L (98-107); Glucose 152 mg/dL (74-99); Non-African American GFR(CKD) >90 (>60 ml/min/1.73 sqM); Potassium 4.2 mmol/L (3.5-5.1); Sodium 138 mmol/L (137-145)
[2022-03-11 08:04] VITALS: BP 115/75; PULSE 79; TEMP 99
[2022-03-11] MEDS ORDERED: PIOGLITAZONE 15 MG TAB PO SCH (09:00)
[2022-03-11] MEDS ORDERED: PRASUGREL 10 MG TAB PO SCH (09:00)
[2022-03-11] MEDS ORDERED: FENOFIBRATE 54 MG TAB PO SCH (09:00)
[2022-03-11] MEDS ORDERED: lisinopriL 5 MG TAB PO SCH (09:00)
[2022-03-11] MEDS ORDERED: ESCITALOPRAM 20 MG TAB PO SCH (09:00)
[2022-03-11] MEDS ORDERED: MAGNESIUM OXIDE 400 MG TAB PO SCH (09:00)
[2022-03-11] MEDS ORDERED: ASPIRIN 81 MG PO SCH (09:00)
[2022-03-11] MEDS ORDERED: SPIRONOLACTONE 25 MG TAB PO SCH (09:00)
[2022-03-11] MEDS: METOPROLOL TARTRATE 25 MG TAB PO SCH (09:04)
[2022-03-11] MEDS ORDERED: ATORVASTATIN 80 MG TAB PO SCH (21:00)
== END 2022-03-11 09:25 | disposition home or self-care (01) ==
LOC: CATHCVL 06:28 → 6NMEDSUR 09:58 → CATHCVL 03-11 09:25
PROVIDERS: ATTEND Internal Medicine Interventional Cardiology
DX: I25.10 Atherosclerotic heart disease of native coronary artery without angina pectoris (principal); E78.5 Hyperlipidemia, unspecified; I25.2 Old myocardial infarction; I42.9 Cardiomyopathy, unspecified; E11.9 Type 2 diabetes mellitus without complications; Z79.899 Other long term (current) drug therapy; Z95.5 Presence of coronary angioplasty implant and graft; Z20.822 Contact with and (suspected) exposure to COVID-19
CPT/HCPCS: 93458; 80048; 87635; C9600; C9602; C1769 ×5; C1887 ×4; C1894; C1725 ×7; C1724; C1874 ×3; J2250; J2001; J3010; J1644; Q9967 ×2

== ENCOUNTER → 2024-02-27 | Outpatient (CLI) | payer MEDICARE ==
--- NOTE | 2024-02-28 10:48 | CTL ---
EXAMINATION TYPE: CT Low Dose Lung DATE OF EXAM: 02/27/2024 11:51 AM CLINICAL INDICATION:Female, 68 years old with history of F17.210 nicotine dependance; personal hx of tobacco use. 1 pack/ day x 20 years. Quit 02/15/22. , history of tobacco use. COMPARISON: None. TECHNIQUE: Multiple axial non-contrast scans were obtained from approximately the lung apices through the upper abdomen. Coronal and sagittal reformatted images were obtained. Low dose technique was uti lized. CT DLP: 118 mGycm, Automated exposure control for dose reduction was used. CT Contrast: Contrast used: None Oral contrast used: None FINDINGS: ======== Lack of intravenous contrast and low dose technique limits the evaluation of the vascular and soft ti ssue structures. LUNGS: No evidence of pulmonary fibrosis. No evidence of focal consolidation, pneumothorax or pleural effusion. Nodules: RUL: None. RML: None. RLL: None. MOODY: None. LLL: None. AIRWAY: Patent and unremarkable. HEART: Size within normal limits. Moderate calcific atherosclerotic coronary artery disease is presen t. MEDIASTINUM: No gross evidence of adenopathy. VASCULATURE: No aortic aneurysm. MUSCULOSKELETAL: No acute osseous abnormalities SOFT TISSUES/LYMPH NODES: Unremarkable. LOWER NECK: No significant findings. UPPER ABDOMEN: No significant findings. IMPRESSION: 1. No clinically significant pulmonary nodules. CT LUNG RAD AND CT CHEST RECOMMENDATION: 1. Recommend annual follow-up LD CT. S Modifier (other clinically significant findings): Coronary artery disease Recommend smoking cessation (if current smoker), or continuation of smoking cessation (if prior smoke r). Annual screening for lung cancer with low-dose computed tomography is recommended in adults ages 55 to 77 years who have a 30 pack-year smoking history and currently smoke or have quit within the pa st 15 years. Screening should be discontinued once a person has not smoked for 15 years or develops a health problem that substantially limits life expectancy or the ability or willingness to have curat tiffanie lung surgery. Lung rads 2021 [email or web address]
== END | disposition home or self-care (01) ==
LOC: RADCTMAIN 11:24
PROVIDERS: ATTEND Family Medicine
DX: Z12.2 Encounter for screening for malignant neoplasm of respiratory organs (principal); Z87.891 Personal history of nicotine dependence
CPT/HCPCS: 71271

== ENCOUNTER → 2024-07-22 | Outpatient (CLI) | payer MEDICARE ==
[2024-07-22 13:54] LABS: ALT 17 U/L (8-44); AST 16 U/L (13-35); Albumin 4.6 g/dL (3.8-4.9); Albumin/Globulin Ratio 2.19 Ratio (1.60-3.17); Alkaline Phosphatase 97 U/L (41-126); BUN/Creat Ratio 26.27 Ratio (12.00-20.00); Blood Urea Nitrogen 28.9 mg/dL (9.0-27.0); Calcium 9.8 mg/dL (8.7-10.3); Carbon Dioxide 26.2 mmol/L (21.6-31.8); Chloride 101 mmol/L (96-109); Chol/HDL Ratio 4.92 Ratio; Globulin 2.1 g/dL (1.6-3.3); Glucose 167 mg/dL (70-110); Potassium 4.9 mmol/L (3.5-5.5); Sodium 140 mmol/L (135-145); Total Bilirubin 0.4 mg/dL (0.3-1.2); Total Protein 6.7 g/dL (6.2-8.2)
[2024-07-22 13:57] LABS: NT-Pro-B-Type Natriuretic Pept 199 pg/mL (0-125)
== END | disposition home or self-care (01) ==
LOC: LABWHC1 09:38
PROVIDERS: ATTEND Internal Medicine Interventional Cardiology
DX: E78.2 Mixed hyperlipidemia (principal); I50.22 Chronic systolic (congestive) heart failure
CPT/HCPCS: 36415; 80053; 80061; 83721; 83880